=== PATIENT | male | born 1960 | race Caucasian/White ===

== ENCOUNTER 2016-07-02 10:04 | Outpatient (CLI) ==
[2016-02-16 09:29] VITALS: BMI 23.0
== END 2016-07-02 10:05 | disposition home or self-care (01) ==
LOC: WOUND 10:04
PROVIDERS: ATTEND Nurse Practitioner Family
DX: T81.89XS Other complications of procedures, not elsewhere classified, sequela (principal); L98.422 Non-pressure chronic ulcer of back with fat layer exposed; F33.9 Major depressive disorder, recurrent, unspecified
CPT/HCPCS: 99211

== ENCOUNTER 2016-07-23 10:28 | Outpatient (CLI) | payer OTHER ==
[2016-02-16 09:29] VITALS: BMI 23.0
== END 2016-07-23 10:29 | disposition home or self-care (01) ==
LOC: WOUND 10:28
PROVIDERS: ATTEND Nurse Practitioner Family
DX: T81.89XS Other complications of procedures, not elsewhere classified, sequela (principal); L98.422 Non-pressure chronic ulcer of back with fat layer exposed; F33.9 Major depressive disorder, recurrent, unspecified
CPT/HCPCS: 99211

== ENCOUNTER 2017-05-29 14:55 | Inpatient (IN) ==
[2017-05-29] MEDS ORDERED: PHENERGAN 25 MG/ML VIAL 25 MG in SODIUM CHLORIDE 50 ML IV STA ×2 (15:00→16:03)
[2017-05-29] MEDS ORDERED: SODIUM CHLORIDE 1,000 ML IV STA (15:00)
[2017-05-29] MEDS ORDERED: PHENERGAN 25 MG/ML VIAL ONE (15:15)
[2017-05-29 15:21] LABS: BASOPHILS # (AUTO) 0.1 K/uL (0-0.2); BASOPHILS % (AUTO) 0.5 % (0.0-3.0); EOSINOPHILS # (AUTO) 0.1 K/ul (0.0-0.7); EOSINOPHILS % (AUTO) 0.4 % (0.0-7.0); HEMATOCRIT 45.2 % (42.0-52.0); IMMATURE GRANULOCYTE % (AUTO) 0.4 % (0.0-5.0); LYMPHOCYTES # (AUTO) 1.6 K/uL (0.60-3.4); LYMPHOCYTES % (AUTO) 7.7 (10.0-50.0); MEAN CORPUSCULAR HEMOGLOBIN 31.4 pg (27.0-31.0); MEAN CORPUSCULAR HGB CONC 35.4 (31.8-35.4); MEAN CORPUSCULAR VOLUME 88.6 fl (80.0-94.0); MONOCYTES % (AUTO) 5.2 (0-10); NEUTROPHILS # (AUTO) 17.3 K/ul (2.0-6.9); NEUTROPHILS % (AUTO) 85.8; PLATELET COUNT 255 10^3/uL (140-440); WHITE BLOOD COUNT 20.18 K/ul (4.2-10.2)
[2017-05-29 15:46] LABS: ALANINE AMINOTRANSFERASE 20 U/L (12-78); ALBUMIN 4.1 g/dL (3.4-5.0); ALBUMIN/GLOBULIN RATIO 1.17; ALKALINE PHOSPHATASE 89 U/L (50-136); ANION GAP 19.8; ASPARTATE AMINO TRANSFERASE 15 U/L (15-37); BILIRUBIN,TOTAL 0.63 mg/dL (0.00-1.20); BLOOD UREA NITROGEN 12 mg/dL (7-18); BUN/CREATININE RATIO 13.18; CALCIUM 9.6 mg/dL (8.2-10.2); CARBON DIOXIDE 19 mmol/L (21-32); CHLORIDE 105 mmol/L (98-107); CREATINE KINASE 107 U/L; CREATININE 0.91 mg/dL (0.60-1.10); GLUCOSE 162 mg/dL (70-100); POTASSIUM 3.8 mmol/L (3.5-5.1); SODIUM 140 mmol/L (136-145); TOTAL PROTEIN 7.6 g/dL (6.4-8.2)
[2017-05-29] MEDS ORDERED: MORPHINE 4 MG/ML VIAL IVP STA ×2 (15:54→18:06)
[2017-05-29 15:57] LABS: FLU INTERNAL QC INTERNAL QC VALID; RAPID FLU A NEGATIVE (NEGATIVE); RAPID FLU B NEGATIVE (NEGATIVE)
--- NOTE | 2017-05-29 16:01 | ED.PDOC ---
General ED Provider: Dr. ROCÍO GUTIERREZ Chief Complaint: Nausea/Vomiting Stated Complaint: abdominal pain, vomiting, nausea this morning Time Seen by Physician: 15:00 (started a bout 4 hrs ago suddenly) Mode of Arrival: Walk-In Information Source: Patient Exam Limitations: No limitations Primary Care Provider: MOUNA MUELLER Nursing and Triage Documentation Reviewed and Agree: Yes GI Complaint Exam - Abdominal Pain Complaint/Exam Onset: Sudden Duration: 4hrs Symptoms Are: Still present Timing: Constant Initial Severity: Severe Current Severity: Severe Location of Pain: Diffuse Radiates To: Denies: Chest, Back, Flank, LLQ, RLQ, Inguinal Character: Reports: Cramping Aggravating: Reports: Movement, Position Alleviating: Reports: None Associated Signs and Symptoms: Reports: Cough, Decreased urine output, Decreased appetite, Nausea, Vomiting, Diarrhea, Decreased activity Related History: Reports: Similar episode AAA Risk Factors: Reports: Smoking Cardiac Risk Factors: Reports: Smoking Testicular Torsion Risk Factors: Reports: None Surgical Obstruction Risk Factors: Reports: None Related Surgical History: Reports: Cholecystectomy (hernia, ) Differential Diagnoses: Bowel Obstruction, Constipation, Diverticulitis, Gastroenteritis Quality Indicators for AMI: EKG in 10min. Quality Indicators for Cardiac Chest Pain: EKG in 10min. Quality Indicator For Non-Traumatic Chest Pain/Syncope: EKG Performed Review of Systems - Review Of Systems Constitutional: Reports: Chills, Malaise, Weakness, Loss of appetite Eyes: Reports: No symptoms Ears, Nose, Mouth, Throat: Reports: No symptoms Respiratory: Reports: Cough Cardiac: Reports: No symptoms GI: Reports: Abdominal pain, Nausea, Vomiting : Reports: No symptoms Musculoskeletal: Reports: No symptoms Skin: Reports: No symptoms Neurological: Reports: No symptoms Endocrine: Reports: No symptoms Hematologic/Lymphatic: Reports: No symptoms All Other Systems: Reviewed and Negative Past Medical History - Past Medical History Previously Healthy: Yes Endocrine: Reports: None Cardiovascular: Reports: Hypertension Respiratory: Reports: None Hematological: Reports: None Gastrointestinal: Reports: None Genitourinary: Reports: None Neuro/Psych: Reports: None Musculoskeletal: Reports: None Cancer: Reports: None - Surgical History General Surgical History: Reports: Unknown - Family History Family History: Reports: Unknown - Social History Smoking Status: Former smoker Hx Substance Use: No Alcohol Screening: None Physical Exam - Physical Exam Appearance: Ill-appearing Ill-appearing: Moderate Pain Distress: Moderate Eyes: MICHAELLE, EOMI, Conjunctiva clear ENT: Ears normal, Nose normal, Oropharynx normal Respiratory: Airway patent, Breath sounds clear, Breath sounds equal, Respirations nonlabored Cardiovascular: RRR, Pulses normal, No rub, No murmur GI/: Tender Musculoskeletal: Normal strength, ROM intact, No edema, No calf tenderness Skin: Warm, Dry, Normal color Neurological: Sensation intact, Motor intact, Reflexes intact, Cranial nerves intact, Alert, Oriented Psychiatric: Affect appropriate, Mood appropriate Critical Care Note - Critical Care Note Total Time (mins): 0 Course - Course Hematology/Chemistry: 05/29/17 15:18 05/29/17 15:18 Orders, Labs, Meds: Lab Review 05/29/17 05/29/17 05/29/17 15:18 15:18 15:20 WBC 20.18 H RBC 5.10 Hgb 16.0 Hct 45.2 MCV 88.6 MCH 31.4 H MCHC 35.4 RDW Coeff of Dee 13.0 Plt Count 255 Immature Gran % (Auto) 0.4 Neut % (Auto) 85.8 Lymph % (Auto) 7.7 L Tift % (Auto) 5.2 Eos % (Auto) 0.4 Baso % (Auto) 0.5 Immature Gran # (Auto) 0.1 Neut # 17.3 H Lymph # 1.6 Tift # 1.0 Eos # 0.1 Baso # 0.1 Sodium 140 Potassium 3.8 Chloride 105 Carbon Dioxide 19 L Anion Gap 19.8 BUN 12 Creatinine 0.91 Estimated GFR (MDRD) 86.00 BUN/Creatinine Ratio 13.18 Glucose 162 H Calcium 9.6 Total Bilirubin 0.63 AST 15 ALT 20 Alkaline Phosphatase 89 Total Creatine Kinase 107 Troponin I < 0.0100 Total Protein 7.6 Albumin 4.1 Globulin 3.5 Albumin/Globulin Ratio 1.17 Influenza A (Rapid) Negative Influenza B (Rapid) Negative Orders Category Date Time Status EKG-(ED ONLY) Stat CARDIO 05/29/17 15:02 Completed BLOOD CULTURE Stat LAB 05/29/17 15:54 Ordered CBC W/ AUTO DIFF Stat LAB 05/29/17 15:18 Completed COMPREHENSIVE METABOLIC PANEL Stat LAB 05/29/17 15:18 Completed CREATINE KINASE Stat LAB 05/29/17 15:18 Completed LACTIC ACID Stat LAB 05/29/17 15:54 Ordered LACTIC ACID Timed LAB 05/29/17 15:54 Ordered MOLECULAR GROUP A STREP Stat LAB 05/29/17 15:20 Results RAPID FLU A/B Stat LAB 05/29/17 15:20 Completed STREP SCREEN Stat LAB 05/29/17 15:20 Results TROPONIN I Stat LAB 05/29/17 15:18 Completed URINALYSIS C & S IF INDICATED Stat LAB 05/29/17 14:58 Uncollected Morphine Sulfate [Morphine 4 mg/ml Vial] MEDS 05/29/17 15:54 Discontinued 4 mg IVP ONCE STA Promethazine HCl [Phenergan 25 mg/ml Vial] MEDS 05/29/17 15:15 Discontinued 25 mg .ROUTE .STK-MED ONE Promethazine HCl [Phenergan 25 mg/ml Vial] 25 mg MEDS 05/29/17 15:00 Discontinued 0.9 % Sodium Chloride [Sodium Chloride] 50 ml IV ONCE Sodium Chloride 0.9% [Sodium Chloride] 1,000 ml MEDS 05/29/17 15:[address] ABDOMEN/PELVIS WO CONTRAST Stat RADS 05/29/17 14:58 Ordered Medications Discontinued Medications Generic Name Dose Route Start Last Admin Trade Name Freq PRN Reason Stop Dose Admin Promethazine HCl 25 mg/ Sodium 51 mls @ 75 mls/hr 05/29/17 15:00 05/29/17 15: 23 Chloride IV 05/29/17 15:40 75 mls/hr ONCE STA Administration Sodium Chloride 1,000 mls @ 1,000 mls/hr 05/29/17 15:00 05/29/17 15:25 Sodium Chloride IV 05/29/17 15:59 1,000 mls/hr BOLUS STA Administration Morphine Sulfate 4 mg 05/29/17 15:54 Morphine 4 Mg/Ml Vial IVP 05/29/17 15:55 ONCE STA Vital Signs: Temp Pulse Resp BP Pulse Ox 05/29/17 14:56 97.7 F 89 16 157/70 H 98 Departure - Departure Time of Disposition: 18:07 Disposition: ADMITTED INPATIENT Discharge Problem: Nausea Abdominal pain Qualifiers: Abdominal location: generalized Qualified Code(s): R10.84 - Generalized abdominal pain Instructions: Abdominal Pain (ED) Condition: Good Pt referred to PMD for follow-up: Yes Additional Instructions: Please call your Family Physician as soon as possible to schedule a follow-up appointment. Allergies/Adverse Reactions: Allergies iodine Adverse Reaction (Verified 05/29/17 15:03) methylparaben Adverse Reaction (Verified 05/29/17 15:03) povidone-iodine [From Betadine] Adverse Reaction (Verified 05/29/17 15:03) Home Medications: Ambulatory Orders Citalopram Hydrobromide [Celexa] 10 mg PO BEDTIME #30 tab-cap 05/19/16 Clonazepam [Klonopin] 1 mg PO BID #60 tab-cap 05/19/16 Ondansetron HCl [Zofran] 4 mg PO PRN PRN tab-cap 05/19/16 Pantoprazole Sodium [Protonix] 40 mg PO DAILY #30 tab-cap 05/19/16 Ranitidine HCl [Zantac] 150 mg PO BID #60 tab-cap 16
--- NOTE | 2017-05-29 16:11 | CT ---
EXAM: CT of the abdomen pelvis without contrast History: Abdominal pain and vomiting. Comparison: CT abdomen pelvis 02/16/2016 Technique: Multiplanar CT images through the abdomen pelvis were obtained without the administration of IV contrast Findings: Lung bases are free of consolidation. Moderate to severe degenerative disc disease within the lower lumbar spine. Status post cholecystectomy. No focal liver or splenic lesions. Adrenal g lands are unremarkable. Benign bilateral adrenal adenomas again identified. No peripancreatic infla mmation. A few punctate 2 mm left renal calculi. No hydronephrosis. The appendix is not dilated or inflamed. Prominent gastric folds. Nondilated fluid filled loops of small bowel and there is proxim al small bowel wall thickening. There is mild diffuse colonic wall thickening. Colonic diverticulos is. There is hyperemia adjacent to the colon. Surgical clips again seen within the right inguinal re gion No bladder wall thickening. Prostate is not enlarged. There is a left inguinal hernia which contain s fluid and soft tissue and may be a high left testicle. Impression: 1. Probable mild gastroenterocolitis. No bowel obstruction. 2. Left inguinal hernia containing fluid and soft tissue and may be related to a high left testicle. Correlate with area of pain and consider further evaluation with scrotal ultrasound. 3. Nonobstructing left nephrolithiasis.
[2017-05-29] MEDS ORDERED: PHENERGAN 25 MG/ML VIAL 25 MG in SODIUM CHLORIDE 50 ML IV PRN (18:05)
[2017-05-29] MEDS: SODIUM CHLORIDE 1,000 ML IV SCH (18:06)
[2017-05-29] MEDS ORDERED: MORPHINE 2 MG/ML SYRINGE IVP PRN (18:06)
[2017-05-29] MEDS ORDERED: ROCEPHIN ONE (18:08)
[2017-05-29] MEDS: ROCEPHIN 1 GM in SODIUM CHLORIDE 50 ML IV SCH (18:11)
--- NOTE | 2017-05-29 18:32 | CT ---
EXAM: CT chest without intravenous contrast 05/29/2017. Sagittal and coronal reformatted images obt ained HISTORY: Cough. Elevated white blood cell count COMPARISON: 03/05/2015 FINDINGS: The heart size appears within normal limits. No pericardial effusion. There is no pulmonary consolidation. No pleural effusion or pneumothorax. No evidence of pulmonary mass. No acute osseous abnormality. Mild right lower lobe atelectasis. IMPRESSION: Right lower lobe atelectasis. No acute cardiopulmonary process.
[2017-05-29] MEDS ORDERED: FLAGYL 500 MG/100 ML 100 ML IV ONE ×2 (19:55→23:58)
[2017-05-29] MEDS: FLAGYL 500 MG/100 ML 500 MG in PREMIX 100 ML NS 1 BAG IV SCH (19:58)
[2017-05-29 20:24] VITALS: BMI 25.2
[2017-05-29] MEDS ORDERED: PROTONIX IV IVP STA (21:22)
[2017-05-29] MEDS ORDERED: NON-FORMULARY MEDICATION (Citalopram Hydrobromide [Celexa] 10 MG) PO SCH ×22 (21:30)
[2017-05-29] MEDS ORDERED: NON-FORMULARY MEDICATION (Clonazepam [Klonopin] 1 MG) PO SCH ×22 (21:30)
[2017-05-29] MEDS ORDERED: CELEXA ONE (21:36)
[2017-05-29] MEDS ORDERED: KLONOPIN ONE (21:36)
[2017-05-29] MEDS ORDERED: CITALOPRAM HYDROBROMIDE 30 MG PO SCH ×2 (21:52→22:00)
[2017-05-29 23:26] LABS: BILIRUBIN,URINE Negative (NEGATIVE); KETONES,URINE 2+ (NEGATIVE); LEUKOCYTE ESTERASE ,URINE Negative (NEGATIVE); NITRITE,URINE Negative (NEGATIVE); PROTEIN,URINE Negative (NEGATIVE); URINE, BLOOD 1+ (NEGATIVE)
[2017-05-29 23:28] LABS: ADD URINE MICROSCOPIC YES
[2017-05-30] MEDS: FLAGYL 500 MG/100 ML 500 MG in PREMIX 100 ML NS 1 BAG IV SCH ×5 (00:04→18:49)
[2017-05-30] MEDS: SODIUM CHLORIDE 1,000 ML IV SCH ×2 (03:10→17:31)
[2017-05-30] MEDS ORDERED: FLAGYL 500 MG/100 ML 100 ML IV ONE (04:13)
[2017-05-30 06:17] LABS: BASOPHILS % (AUTO) 0.2 % (0.0-3.0); HEMATOCRIT 41.8 % (42.0-52.0); HEMOGLOBIN 14.8 g/dl (14.0-18.0); IMMATURE GRANULOCYTE % (AUTO) 0.3 % (0.0-5.0); LYMPHOCYTES # (AUTO) 1.1 K/uL (0.60-3.4); LYMPHOCYTES % (AUTO) 8.7 (10.0-50.0); MEAN CORPUSCULAR HEMOGLOBIN 31.8 pg (27.0-31.0); MEAN CORPUSCULAR HGB CONC 35.4 (31.8-35.4); MEAN CORPUSCULAR VOLUME 89.9 fl (80.0-94.0); MONOCYTES % (AUTO) 7.7 (0-10); NEUTROPHILS # (AUTO) 10.2 K/ul (2.0-6.9); NEUTROPHILS % (AUTO) 83.1; PLATELET COUNT 234 10^3/uL (140-440); RED BLOOD COUNT 4.65 10^6/ul (4.70-6.10); WHITE BLOOD COUNT 12.31 K/ul (4.2-10.2)
[2017-05-30] MEDS ORDERED: PROTONIX IV IVP ONE (06:30)
[2017-05-30] MEDS ORDERED: PHENERGAN 25 MG/ML VIAL ONE (06:32)
[2017-05-30 06:47] LABS: ANION GAP 15.5; BILIRUBIN,TOTAL 0.51 mg/dL (0.00-1.20); CALCIUM 8.6 mg/dL (8.2-10.2); CREATININE 0.8 mg/dL (0.60-1.10); POTASSIUM 3.5 mmol/L (3.5-5.1)
[2017-05-30 06:48] LABS: ALBUMIN 3.2 g/dL (3.4-5.0); ALBUMIN/GLOBULIN RATIO 0.94; TOTAL PROTEIN 6.6 g/dL (6.4-8.2)
[2017-05-30] MEDS: KLONOPIN PO SCH ×2 (10:37→21:35)
[2017-05-30] MEDS: ROCEPHIN 1 GM in SODIUM CHLORIDE 50 ML IV SCH (12:50)
[2017-05-30] MEDS: ZANTAC PO SCH (17:31)
[2017-05-30] MEDS ORDERED: CELEXA PO SCH (21:00)
[2017-05-31] MEDS: FLAGYL 500 MG/100 ML 500 MG in PREMIX 100 ML NS 1 BAG IV SCH ×5 (00:39→23:18)
[2017-05-31 05:16] LABS: BASOPHILS # (AUTO) 0.1 K/uL (0-0.2); BASOPHILS % (AUTO) 0.7 % (0.0-3.0); EOSINOPHILS # (AUTO) 0.1 K/ul (0.0-0.7); EOSINOPHILS % (AUTO) 0.8 % (0.0-7.0); HEMATOCRIT 40.4 % (42.0-52.0); HEMOGLOBIN 13.8 g/dl (14.0-18.0); IMMATURE GRANULOCYTE % (AUTO) 0.4 % (0.0-5.0); LYMPHOCYTES # (AUTO) 2.6 K/uL (0.60-3.4); LYMPHOCYTES % (AUTO) 27.1 (10.0-50.0); MEAN CORPUSCULAR HEMOGLOBIN 31.1 pg (27.0-31.0); MEAN CORPUSCULAR HGB CONC 34.2 (31.8-35.4); MONOCYTES # (AUTO) 0.9 K/uL (0.4-2.0); MONOCYTES % (AUTO) 9.7 (0-10); NEUTROPHILS # (AUTO) 5.8 K/ul (2.0-6.9); NEUTROPHILS % (AUTO) 61.3; PLATELET COUNT 215 10^3/uL (140-440); RED BLOOD COUNT 4.44 10^6/ul (4.70-6.10); WHITE BLOOD COUNT 9.49 K/ul (4.2-10.2)
[2017-05-31 05:54] LABS: ALBUMIN/GLOBULIN RATIO 1.07; ANION GAP 12.3; BILIRUBIN,TOTAL 0.62 mg/dL (0.00-1.20); BUN/CREATININE RATIO 19.48; CREATININE 0.77 mg/dL (0.60-1.10); POTASSIUM 3.3 mmol/L (3.5-5.1); TOTAL PROTEIN 5.8 g/dL (6.4-8.2)
[2017-05-31] MEDS: ZANTAC PO SCH ×2 (06:09→18:14)
[2017-05-31] MEDS: KLONOPIN PO SCH ×2 (10:16→23:15)
[2017-05-31] MEDS: ROCEPHIN 1 GM in SODIUM CHLORIDE 50 ML IV SCH (10:16)
[2017-05-31] MEDS: SODIUM CHLORIDE 1,000 ML IV ONE ×2 (11:27→11:30)
[2017-05-31] MEDS: CELEXA PO SCH (23:14)
[2017-06-01] MEDS: FLAGYL 500 MG/100 ML 500 MG in PREMIX 100 ML NS 1 BAG IV SCH ×3 (07:36→17:13)
[2017-06-01] MEDS: ZANTAC PO SCH ×2 (07:37→17:12)
[2017-06-01] MEDS: PROTONIX PO SCH (08:48)
[2017-06-01 08:55] LABS: BASOPHILS # (AUTO) 0.1 K/uL (0-0.2); EOSINOPHILS # (AUTO) 0.2 K/ul (0.0-0.7); EOSINOPHILS % (AUTO) 2.5 % (0.0-7.0); HEMATOCRIT 43.1 % (42.0-52.0); HEMOGLOBIN 15.4 g/dl (14.0-18.0); IMMATURE GRANULOCYTE % (AUTO) 0.3 % (0.0-5.0); LYMPHOCYTES # (AUTO) 1.8 K/uL (0.60-3.4); LYMPHOCYTES % (AUTO) 19.6 (10.0-50.0); MEAN CORPUSCULAR HEMOGLOBIN 31.9 pg (27.0-31.0); MEAN CORPUSCULAR HGB CONC 35.7 (31.8-35.4); MEAN CORPUSCULAR VOLUME 89.2 fl (80.0-94.0); MONOCYTES # (AUTO) 0.8 K/uL (0.4-2.0); MONOCYTES % (AUTO) 8.4 (0-10); NEUTROPHILS # (AUTO) 6.1 K/ul (2.0-6.9); NEUTROPHILS % (AUTO) 68.2; PLATELET COUNT 218 10^3/uL (140-440); RED BLOOD COUNT 4.83 10^6/ul (4.70-6.10); WHITE BLOOD COUNT 8.95 K/ul (4.2-10.2)
[2017-06-01] MEDS: ROCEPHIN 1 GM in SODIUM CHLORIDE 50 ML IV SCH (08:55)
[2017-06-01] MEDS: KLONOPIN PO SCH ×2 (08:56→21:18)
[2017-06-01] MEDS: K-DUR PO SCH ×2 (08:58→21:18)
[2017-06-01 09:15] LABS: ALBUMIN 3.3 g/dL (3.4-5.0); ALBUMIN/GLOBULIN RATIO 1.14; ANION GAP 12.3; BILIRUBIN,TOTAL 0.69 mg/dL (0.00-1.20); BUN/CREATININE RATIO 17.94; CALCIUM 8.5 mg/dL (8.2-10.2); CREATININE 0.78 mg/dL (0.60-1.10); POTASSIUM 3.3 mmol/L (3.5-5.1); TOTAL PROTEIN 6.2 g/dL (6.4-8.2)
--- NOTE | 2017-06-01 09:47 | PCM.PROG ---
Attending Provider: ATTENDING PROVIDER: Dr. MOUNA MUELLER This patient is seen with Jocelyn Salinas, Nurse Practitioner. DATE OF SERVICE: 06/01/17 SUBJECTIVE: This 56 year old WHITE/ M was hospitalized 05/29/17. The patient is sitting in bed, is alert. He states he is still having diarrhea. No vomiting since Thursday night. He is sleeping well. He has been able to eat some. Potassium low yesterday, will recheck CBC and CMP today. REVIEW OF SYSTEMS: CONSTITUTIONAL: Weakness. No night sweats. No fever or chills. HEENT: Eyes: No visual changes. No eye pain. No eye discharge. ENT: No runny nose. No epistaxis. No sinus pain. No odynophagia. No congestion. RESPIRATORY: No cough, no congestion. No hemoptysis. No shortness of breath. CARDIOVASCULAR: No angina symptoms. No CHF symptoms. No atypical chest pain for CAD. No palpitations. No orthopnea.. GASTROINTESTINAL: No abdominal pain. No nausea or vomiting. Positive for diarrhea. No hematemesis. No hematochezia. GENITOURINARY: No urgency. No frequency. No dysuria. No hematuria. No obstructive symptoms. No discharge. No pain. No significant abnormal bleeding. MUSCULOSKELETAL: No musculoskeletal pain; no joint swelling. NEUROLOGICAL: Awake, alert, oriented to time, place and person. No headache. No neck pain. No syncope. No seizures. No dizziness. PSYCHIATRIC: Not anxious. No depression. No suicidal thoughts. No homicidal thoughts. SKIN: No rash. No lesions. No wounds. ENDOCRINE: No unexplained weight loss. No weight gain. HEMATOLOGIC/LYMPHATIC: No anemia. No purpura. No petechiae. No prolonged or excessive bleeding. No palpable lymph nodes. PHYSICAL EXAMINATION: GENERAL: The patient is awake, alert and oriented, sitting in bed in no distress. VITAL SIGNS: Temperature 97.6 F, Pulse 68, Respiratory Rate 20, BP 123/88, Pulse Ox 98% HEENT: Head normocephalic, atraumatic. Eyes: Extraocular muscles are intact. Pupils are equal, round and reactive to light and accommodation. Ears: No lesions. Nose appeared normal. Throat: No exudate or erythema. NECK: Supple. No JVD, no carotid bruit. No lymphadenopathy or thyromegaly. LUNGS: Diminished breath sounds. Clear to auscultation. Percussion note normal. Chest symmetrical. HEART: S1, S2, no S3. No murmurs. No cyanosis or clubbing. No ascites. Pulses: Dorsalis pedis and posterior tibial pulses +1 to +2 both sides. ABDOMEN: Soft. Non-tender. Bowel sounds active. No CVA tenderness. No mass felt. EXTREMITIES: No edema. Full range of motion of all extremities, equal. NEUROLOGIC: No focal deficit. Cranial nerves II through XII are grossly intact. No headache, no double vision or headache. SKIN: Not dry. Intact. Turgor-normal. LYMPHATIC: No palpable lymph nodes/no lymphedema. MUSCULOSKELETAL: Normal joints with no swelling. Muscle tone is normal. LAB REVIEW: 05/31/17 04:30 05/31/17 04:30 ASSESSMENT: 1. ACUTE GASTROENTERITIS 2. GERD PLAN: 1. CBC and CMP daily 2. Protonix 40 mg daily 3. 40 mEq b.i.d potassium Plan and coordination of the patient's care discussed in the presence of Caving Guide and nurse. CONDITION: Stable SCRIBED BY: Rich GARZAist scribed while in presence of service performed by Dr. Mueller/Jocelyn Salinas APRN on 06/01/17 ([id number])
[2017-06-01] MEDS: SODIUM CHLORIDE 1,000 ML IV SCH (12:43)
[2017-06-01] MEDS: CELEXA PO SCH (21:18)
[2017-06-02] MEDS: FLAGYL 500 MG/100 ML 500 MG in PREMIX 100 ML NS 1 BAG IV SCH ×3 (01:56→11:47)
[2017-06-02 05:02] LABS: BASOPHILS # (AUTO) 0.1 K/uL (0-0.2); BASOPHILS % (AUTO) 0.9 % (0.0-3.0); EOSINOPHILS # (AUTO) 0.5 K/ul (0.0-0.7); EOSINOPHILS % (AUTO) 5.4 % (0.0-7.0); HEMATOCRIT 44.6 % (42.0-52.0); HEMOGLOBIN 15.7 g/dl (14.0-18.0); IMMATURE GRANULOCYTE % (AUTO) 0.3 % (0.0-5.0); LYMPHOCYTES # (AUTO) 1.5 K/uL (0.60-3.4); LYMPHOCYTES % (AUTO) 16.8 (10.0-50.0); MEAN CORPUSCULAR HEMOGLOBIN 31.4 pg (27.0-31.0); MEAN CORPUSCULAR HGB CONC 35.2 (31.8-35.4); MEAN CORPUSCULAR VOLUME 89.2 fl (80.0-94.0); MONOCYTES # (AUTO) 0.9 K/uL (0.4-2.0); MONOCYTES % (AUTO) 10.6 (0-10); NEUTROPHILS # (AUTO) 5.8 K/ul (2.0-6.9); PLATELET COUNT 224 10^3/uL (140-440); WHITE BLOOD COUNT 8.76 K/ul (4.2-10.2)
[2017-06-02 05:24] LABS: ALBUMIN 3.2 g/dL (3.4-5.0); ALBUMIN/GLOBULIN RATIO 1.1; ANION GAP 10.7; BILIRUBIN,TOTAL 0.64 mg/dL (0.00-1.20); BUN/CREATININE RATIO 16.45; CALCIUM 8.6 mg/dL (8.2-10.2); CREATININE 0.79 mg/dL (0.60-1.10); POTASSIUM 3.7 mmol/L (3.5-5.1); TOTAL PROTEIN 6.1 g/dL (6.4-8.2)
[2017-06-02] MEDS: PROTONIX PO SCH (05:58)
[2017-06-02] MEDS: ZANTAC PO SCH (05:59)
[2017-06-02] MEDS: ROCEPHIN 1 GM in SODIUM CHLORIDE 50 ML IV SCH (08:49)
[2017-06-02] MEDS: K-DUR PO SCH (08:50)
[2017-06-02] MEDS: KLONOPIN PO SCH (08:54)
--- NOTE | 2017-06-02 09:22 | PN ---
DATE OF SERVICE: 05/29/17 SUBJECTIVE: The patient was hospitalized through the emergency room with acute gastroenteritis. All his labs were practically normal except for continuous nausea and some vomiting with diarrhea. The patient's only abnormality on the lab was WBC was 20,000. Stool for C-Diff was ordered. The patient is going to be on IV fluids, Phenergan for nausea. The patient will be put on Protonix IV. Continue the rest of the medications including Celexa. The patient's other cardiovascular and HEALTH ANALYTICS CONSULTANT status is normal. CT scan of the chest was negative. CT scan of the abdominal and pelvis showed gastroenteritis CONDITION: Stable TIME SPENT: More than 30 minutes. Plan and coordination of the patient's care discussed in the presence of nurse. ADELA
[2017-06-02 09:47] VITALS: BP 139/87; TEMP 98.3
--- NOTE | 2017-06-02 09:56 | HP ---
DATE OF SERVICE: 05/29/17 REASON FOR HOSPITALIZATION: Acute gastroenteritis HISTORY OF PRESENT ILLNESS: 56 year old white male came to the emergency room with severe diarrhea and vomiting of nearly 24-48 hours duration. The patient in the emergency room was given Phenergan and IV fluids. The patient's WBC was 20,000. The patient doesn' t remember anything that could have started this. PAST MEDICAL HISTORY: Depression Anxiety syndrome Severe reflux disease REVIEW OF SYSTEMS: CONSTITUTIONAL: No night sweats. Weakness and fatigue. No fever or chills. HEENT: Eyes: No visual changes. No eye pain. No eye discharge. ENT: No runny nose. No epistaxis. No sinus pain. No sore throat. No odynophagia. No ear pain. No congestion. RESPIRATORY: No cough, no congestion. No hemoptysis. No shortness of breath. CARDIOVASCULAR: No angina symptoms. No CHF symptoms. No atypical chest pain for CAD. No palpitations. No orthopnea. GASTROINTESTINAL: No abdominal pain. Nausea and vomiting. Diarrhea stool. No hematemesis. No hematochezia. GENITOURINARY: No urgency. No frequency. No dysuria. No hematuria. No obstructive symptoms. No discharge. No pain. No significant abnormal bleeding. MUSCULOSKELETAL: No musculoskeletal pain. No joint swelling. No arthritis. NEUROLOGICAL: No headache. No neck pain. No syncope. No seizures. No dizziness. Lightheaded. PSYCHIATRIC: Not anxious. No depression. No suicidal thoughts. No homicidal thoughts. SKIN: No rash. No lesions. No wounds. ENDOCRINE: No unexplained weight loss. No weight gain. HEMATOLOGIC/LYMPHATIC: No anemia. No purpura. No petechiae. No prolonged or excessive bleeding. No palpable lymph nodes. PERSONAL/FAMILY/SOCIAL HISTORY: The patient is and nonsmoker, no alcohol abuse. He does all activity of daily living. MEDICATIONS: Celexa Klonopin Zofran Protonix Zantac ALLERGIES: Methylparaben Betadine PHYSICAL EXAMINATION: GENERAL: The patient is oriented to time, place and person VITAL SIGNS: Temperature 98.1, pulse 90, respiratory rate 16, blood pressure 138/80 and pulse ox 94%. HEENT: Head normocephalic, atraumatic. Eyes: Extraocular muscles are intact. Pupils are equal, round and reactive to light and accommodation. Ears: No lesions. Nose appeared normal. Throat: No exudate or erythema. NECK: Supple. No JVP, no carotid bruit. No lymphadenopathy or thyromegaly. LUNGS: Decreased breath sounds but clear to auscultation. Percussion note normal. Chest symmetrical. HEART: S1, S2, no S3. No murmurs. No cyanosis or clubbing. No ascites. Pulses: Dorsalis pedis and posterior tibial pulses +1 to +2 both sides. ABDOMEN: Soft. Nontender. Bowel sounds active. No CVA tenderness. No mass felt. EXTREMITIES: No edema. Full range of motion of all extremities, equal. NEUROLOGIC: No focal deficit. Cranial nerves II through XII are grossly intact. No headache, no double vision or headache. SKIN: Not dry. Intact. Turgor -Poor LYMPHATIC: No palpable lymph nodes/no lymphedema. MUSCULOSKELETAL: Normal joints with no swelling. Muscle tone is normal. LABS: Hgb 14.8, hct 41, WBC 20,000 with shift to the left ASSESSMENT: 1. Acute gastroenteritis with dehydration 2. Reflux disease 3. Depression PLAN: 1. IV fluid 2. IV Phenergan 3. Lomotil PRN 4. The patient is to send stool for C-Diff 5. Flagyl IV CONDITION: Stable TIME SPENT: More than 70 minutes. MTDD
--- NOTE | 2017-06-02 10:01 | PN ---
DATE OF SERVICE: 05/30/17 SUBJECTIVE: 56 year old white male hospitalized with acute gastroenteritis. The patient's condition has improved a lot. is present in the room. The patient is sitting up and eating. He says that he has mild nausea off and on but the vomited has subsided and diarrhea part also has subsided. REVIEW OF SYSTEMS: CONSTITUTIONAL: No night sweats. No fatigue, malaise, lethargy. No fever or chills. Weakness HEENT: Eyes: No visual changes. No eye pain. No eye discharge. ENT: No runny nose. No epistaxis. No sinus pain. No sore throat. No odynophagia. No congestion. RESPIRATORY: No cough, no congestion. No hemoptysis. No shortness of breath. CARDIOVASCULAR: No angina symptoms. No CHF symptoms. No atypical chest pain for CAD. No palpitations. No orthopnea. GASTROINTESTINAL: No abdominal pain. Mild nausea. No diarrhea or constipation. No hematemesis. No hematochezia. GENITOURINARY: No urgency. No frequency. No dysuria. No hematuria. No obstructive symptoms. No discharge. No pain. No significant abnormal bleeding. MUSCULOSKELETAL: No musculoskeletal pain; no joint swelling. NEUROLOGICAL: No headache. No neck pain. No syncope. No seizures. No dizziness. PSYCHIATRIC: Not anxious. No depression. No suicidal thoughts. No homicidal thoughts. SKIN: No rash. No lesions. No wounds. ENDOCRINE: No unexplained weight loss. No weight gain. HEMATOLOGIC/LYMPHATIC: No anemia. No purpura. No petechiae. No prolonged or excessive bleeding. No palpable lymph nodes. PHYSICAL EXAMINATION: GENERAL: The patient is oriented to time, place and person VITAL SIGNS: Temperature 98.1, pulse 96, respiratory rate 16, blood pressure 140/90 and pulse ox 94%. HEENT: Head normocephalic, atraumatic. Eyes: Extraocular muscles are intact. Pupils are equal, round and reactive to light and accommodation. Ears: No lesions. Nose appeared normal. Throat: No exudate or erythema. NECK: Supple. No JVD, no carotid bruit. No lymphadenopathy or thyromegaly. LUNGS: Decreased breath sounds but clear to auscultation. Percussion note normal. Chest symmetrical. HEART: S1, S2, no S3. No murmurs. No cyanosis or clubbing. No ascites. Pulses: Dorsalis pedis and posterior tibial pulses +1 to +2 both sides. ABDOMEN: Soft. Nontender. Bowel sounds active. No CVA tenderness. No mass felt. EXTREMITIES: No edema. Full range of motion of all extremities, equal. NEUROLOGIC: No focal deficit. Cranial nerves II through XII are grossly intact. No headache, no double vision or headache. SKIN: Not dry. Intact. Turgor - a lot better. LYMPHATIC: No palpable lymph nodes/no lymphedema. MUSCULOSKELETAL: Normal joints with no swelling. Muscle tone is normal. LABS: Hgb 14, hct 41, WBC 12,000 it was 20,000 before, creatinine 0.9, BUN 12 ASSESSMENT: 1. Acute gastroenteritis seems to be resolving with good skin turgor, no fluid overload PLAN: 1. Continue IV Protonix and Flagyl 2. Awaiting C-Diff, I don't think that patient has C-Diff , the patient was afebrile throughout and the patient had simple gastroenteritis could be viral CONDITION: Stable TIME SPENT: More than 30 minutes. Plan and coordination of the patient's care discussed in the presence of nurse. ADELA
--- NOTE | 2017-06-02 11:11 | PCM.PROG ---
Attending Provider: ATTENDING PROVIDER: Dr. MOUNA MUELLER This patient is seen with Jocelyn Salinas, Nurse Practitioner. DATE OF SERVICE: 06/02/17 SUBJECTIVE: This 56 year old WHITE/ M was hospitalized 05/29/17. The patient is lying in bed. The patient states he is wanting to go home. He had four looser stools yesterday but is improving. He states he never has completely formed stools. No nausea. No vomiting. No fever. REVIEW OF SYSTEMS: CONSTITUTIONAL: No night sweats. No fatigue, malaise, lethargy. No fever or chills. HEENT: Eyes: No visual changes. No eye pain. No eye discharge. ENT: No runny nose. No epistaxis. No sinus pain. No odynophagia. No congestion. RESPIRATORY: No cough, no congestion. No hemoptysis. No shortness of breath. CARDIOVASCULAR: No angina symptoms. No CHF symptoms. No atypical chest pain for CAD. No palpitations. No orthopnea.. GASTROINTESTINAL: Diarrhea improving. No abdominal pain. No nausea or vomiting. No hematemesis. No hematochezia. GENITOURINARY: No urgency. No frequency. No dysuria. No hematuria. No obstructive symptoms. No discharge. No pain. No significant abnormal bleeding. MUSCULOSKELETAL: No musculoskeletal pain; no joint swelling. NEUROLOGICAL: Awake, alert, oriented to time, place and person. No headache. No neck pain. No syncope. No seizures. No dizziness. PSYCHIATRIC: Not anxious. No depression. No suicidal thoughts. No homicidal thoughts. SKIN: No rash. No lesions. No wounds. ENDOCRINE: No unexplained weight loss. No weight gain. HEMATOLOGIC/LYMPHATIC: No anemia. No purpura. No petechiae. No prolonged or excessive bleeding. No palpable lymph nodes. PHYSICAL EXAMINATION: GENERAL: The patient is awake, alert and oriented, lying in bed in no distress. VITAL SIGNS: Temperature 98.2 F, Pulse 63, Respiratory Rate 18, BP 123/85, Pulse Ox 97% HEENT: Head normocephalic, atraumatic. Eyes: Extraocular muscles are intact. Pupils are equal, round and reactive to light and accommodation. Ears: No lesions. Nose appeared normal. Throat: No exudate or erythema. NECK: Supple. No JVD, no carotid bruit. No lymphadenopathy or thyromegaly. LUNGS: Diminished breath sounds bilaterally. Clear to auscultation. Percussion note normal. Chest symmetrical. HEART: S1, S2, no S3. No murmurs. No cyanosis or clubbing. No ascites. Pulses: Dorsalis pedis and posterior tibial pulses +1 to +2 both sides. ABDOMEN: Soft. Non-tender. Bowel sounds active. No CVA tenderness. No mass felt. EXTREMITIES: No edema. Full range of motion of all extremities, equal. NEUROLOGIC: No focal deficit. Cranial nerves II through XII are grossly intact. No headache, no double vision or headache. SKIN: Not dry. Intact. Turgor-normal. LYMPHATIC: No palpable lymph nodes/no lymphedema. MUSCULOSKELETAL: Normal joints with no swelling. Muscle tone is normal. LAB REVIEW: 06/02/17 04:30 06/02/17 04:30 06/02/17 04:30: Sodium 138, Potassium 3.7, Chloride 107, Carbon Dioxide 24, Anion Gap 10.7, BUN 13, Creatinine 0.79, Estimated GFR (MDRD) 101.00, BUN/ Creatinine Ratio 16.45, Glucose 84, Calcium 8.6, Total Bilirubin 0.64, AST 15, ALT 11 L, Alkaline Phosphatase 74, Total Protein 6.1 L, Albumin 3.2 L, Globulin 2.9, Albumin/Globulin Ratio 1.10 06/02/17 04:30: WBC 8.76, RBC 5.00, Hgb 15.7, Hct 44.6, MCV 89.2, MCH 31.4 H, MCHC 35.2, RDW Coeff of Dee 12.6, Plt Count 224, Immature Gran % (Auto) 0.3, Neut % (Auto) 66.0, Lymph % (Auto) 16.8, [place] % (Auto) 10.6 H, Eos % (Auto) 5.4 , Baso % (Auto) 0.9, Immature Gran # (Auto) 0.0, Neut # 5.8, Lymph # 1.5, [place] # 0.9, Eos # 0.5, Baso # 0.1 06/01/17 08:45: Sodium 138, Potassium 3.3 L, Chloride 105, Carbon Dioxide 24, Anion Gap 12.3, BUN 14, Creatinine 0.78, Estimated GFR (MDRD) 103.00, BUN/ Creatinine Ratio 17.94, Glucose 100, Calcium 8.5, Total Bilirubin 0.69, AST 13 L , ALT 10 L, Alkaline Phosphatase 74, Total Protein 6.2 L, Albumin 3.3 L, Globulin 2.9, Albumin/Globulin Ratio 1.14 06/01/17 08:45: WBC 8.95, RBC 4.83, Hgb 15.4, Hct 43.1, MCV 89.2, MCH 31.9 H, MCHC 35.7 H, RDW Coeff of Dee 12.8, Plt Count 218, Immature Gran % (Auto) 0.3, Neut % (Auto) 68.2, Lymph % (Auto) 19.6, [place] % (Auto) 8.4, Eos % (Auto) 2.5, Baso % (Auto) 1.0, Immature Gran # (Auto) 0.0, Neut # 6.1, Lymph # 1.8, [place] # 0.8, Eos # 0.2, Baso # 0.1 ASSESSMENT: 1. ACUTE GASTROENTERITIS 2. GERD 3. HYPOKALEMIA RESOLVED PLAN: 1. D/C home today 2. Followup with Dr. Mueller/Jocelyn Salinas APRN on Thursday 3. Flagyl 500 t.i.d times five days 4. Zofran 4 mg p.r.n. #30 5. Continue Protonix 6. Continue Zantac 7. Questran 4 gm daily times one week Plan and coordination of the patient's care discussed in the presence of Pharmacy Informatics Specialist and nurse. CONDITION: Stable SCRIBED BY: SANDOVAL MANDEL, Ammonia Box Tender scribed while in presence of service performed by Dr. Mueller/Jocelyn Salinas APRN on 06/02/17 (1929)
--- NOTE | 2017-06-02 13:05 | CM.DICTOOL ---
ADMISSION: 05/29/17 18:14 DISCHARGE: 06/02/17 DATE OF SERVICE: 06/02/17 FINAL DIAGNOSIS GASTROENTERITIS, IMPROVED DEHYDRATION, RESOLVED GERD HYPOKALEMIA, RESOLVED DEPRESSION/ANXIETY HIATAL HERNIA REPAIR DUODENAL ULCER SURGERY CHOLECYSTECTOMY, 06/12 LAST VITALS Temp Pulse Resp BP Pulse Ox 98.3 F 81 20 139/87 97 06/02/17 09:46 06/02/17 09:46 06/02/17 09:46 06/02/17 09:46 06/02/17 09:46 ACTIVE MEDICATIONS Citalopram Hydrobromide (Celexa) 40 mg PO BEDTIME REPLACED BY [facility] Last Admin: 06/01/17 21:18 Dose: 40 mg Clonazepam (Klonopin) 1 mg PO BID REPLACED BY [facility] Last Admin: 06/02/17 08:54 Dose: 1 mg Ondansetron HCL (Zofran) 4 mg PO Q6-8H PRN N/V Pantoprazole Sodium (Protonix) 40 mg PO QDAC REPLACED BY [facility] Last Admin: 06/02/17 05:58 Dose: 40 mg Ranitidine HCl (Zantac) 150 mg PO BIDAC REPLACED BY [facility] Last Admin: 06/02/17 05:59 Dose: 150 mg ALLERGIES iodine Adverse Reaction (Verified 05/29/17 15:03) methylparaben Adverse Reaction (Verified 05/29/17 15:03) povidone-iodine [From Betadine] Adverse Reaction (Verified 05/29/17 15:03) NEW PRESCRIPTIONS: FLAGYL 500 MG, TAKE ONE TABLET BY MOUTH THREE TIMES DAILY FOR 5 DAYS QUESTRAN 4 GRAMS, TAKE ONE PACKET BY MOUTH DAILY FOR 7 DAYS ZOFRAN 4 MG, TAKE ONE TABLET BY MOUTH Q 6-8 HOURS NEEDED FOR NAUSEA K-DUR 40 MEQ, TAKE ONE TABLET BY MOUTH DAILY FOR 5 DAYS SMOKING: FORMER SMOKER DISEASE SPECIFIC EDUCATION: GASTROENTERITIS DEHYDRATION GERD HYPOKALEMIA HOME MEDICATIONS NEW PRESCRIPTIONS FOLLOW UP LAB REVIEW: 06/02/17 04:30 06/02/17 04:30 06/02/17 04:30: Sodium 138, Potassium 3.7, Chloride 107, Carbon Dioxide 24, Anion Gap 10.7, BUN 13, Creatinine 0.79, Estimated GFR (MDRD) 101.00, BUN/ Creatinine Ratio 16.45, Glucose 84, Calcium 8.6, Total Bilirubin 0.64, AST 15, ALT 11 L, Alkaline Phosphatase 74, Total Protein 6.1 L, Albumin 3.2 L, Globulin 2.9, Albumin/Globulin Ratio 1.10 06/02/17 04:30: WBC 8.76, RBC 5.00, Hgb 15.7, Hct 44.6, MCV 89.2, MCH 31.4 H, MCHC 35.2, RDW Coeff of Dee 12.6, Plt Count 224, Immature Gran % (Auto) 0.3, Neut % (Auto) 66.0, Lymph % (Auto) 16.8, [place] % (Auto) 10.6 H, Eos % (Auto) 5.4 , Baso % (Auto) 0.9, Immature Gran # (Auto) 0.0, Neut # 5.8, Lymph # 1.5, [place] # 0.9, Eos # 0.5, Baso # 0.1 PLAN: DISCHARGE HOME TODAY RETURN TO SEE DR. MUELLER IN 5-7 DAYS. PLEASE PHONE HIS OFFICE TO SCHEDULE YOUR APPOINTMENT [phone] RESUME YOUR HOME MEDICATIONS PER LIST PROVIDED BY THE NURSING STAFF NEW PRESCRIPTIONS FLAGYL 500 MG, TAKE ONE TABLET BY MOUTH THREE TIMES DAILY FOR 5 DAYS QUESTRAN 4 GRAMS, TAKE ONE PACKET BY MOUTH DAILY FOR 7 DAYS ZOFRAN 4 MG, TAKE ONE TABLET BY MOUTH Q 6-8 HOURS NEEDED FOR NAUSEA K-DUR 40 MEQ, TAKE ONE TABLET BY MOUTH DAILY FOR 5 DAYS DIET HEALTHY HEART TOLERATED ACTIVITY GET PLENTY OF REST AT HOME GRADUALLY INCREASE YOUR ACTIVITY LEVEL ACCORDING TO YOUR TOLERATION SUMMARY THE PATIENT IS ALERT AND ORIENTED X3. HE CURRENTLY RESIDES AT HOME WITH HIS FAMILY. HE IS INDEPENDENT WITH ADL'S AND DOES NOT REQUIRE ANY DME, HOME HEALTH OR HOMEMAKING SERVICES FOR ASSISTANCE. HE DESIRES TO RETURN HOME AT DISCHARGE. THE SKIN TURGOR IS INTACT AND WITHOUT DECUBITUS ULCERS. HYDRATION AND NUTRITIONAL STATUS ARE IMPROVED FROM ADMISSION. THE PATIENT IS AWARE AND AGREEABLE FOR DISCHARGE TODAY. CURRENT CODE STATUS FULL CODE HUMA CHASE APRN MOUNA MUELLER M.D.
--- NOTE | 2017-06-02 15:05 | PN ---
DATE OF SERVICE: 05/31/17 SUBJECTIVE: 56 year old white male hospitalized with acute gastroenteritis which seems to have resolved. He is still weak, tired and sleepy. The patient's condition has improved. His existing problem is anxiety disorder and some depression. The patient still a lot better then what he was nearly a year and a half ago. He continued to lose weight and now he is weight is stable and in fact has gained some. He still has some anxiety problem. The patient is on Klonopin and Celexa which seems to be working well. He has no suicidal or homicidal ideas or tendency. I had interviewed his and she is of the same opinion. REVIEW OF SYSTEMS: CONSTITUTIONAL: No night sweats. No fatigue, malaise, lethargy. No fever or chills. HEENT: Eyes: No visual changes. No eye pain. No eye discharge. ENT: No runny nose. No epistaxis. No sinus pain. No sore throat. No odynophagia. No congestion. RESPIRATORY: No cough, no congestion. No hemoptysis. No shortness of breath. CARDIOVASCULAR: No angina symptoms. No CHF symptoms. No atypical chest pain for CAD. No palpitations. No orthopnea. GASTROINTESTINAL: No abdominal pain. Nausea and vomiting has practically subsided. No diarrhea or constipation. No hematemesis. No hematochezia. GENITOURINARY: No urgency. No frequency. No dysuria. No hematuria. No obstructive symptoms. No discharge. No pain. No significant abnormal bleeding. MUSCULOSKELETAL: No musculoskeletal pain; no joint swelling. NEUROLOGICAL: No headache. No neck pain. No syncope. No seizures. No dizziness. PSYCHIATRIC: Not anxious. No depression. No suicidal thoughts. No homicidal thoughts. SKIN: No rash. No lesions. No wounds. ENDOCRINE: No unexplained weight loss. No weight gain. HEMATOLOGIC/LYMPHATIC: No anemia. No purpura. No petechiae. No prolonged or excessive bleeding. No palpable lymph nodes. PHYSICAL EXAMINATION: VITAL SIGNS: Temperature 98, pulse 68, respiratory rate 18, blood pressure 132/ 70 and pulse ox 96%. HEENT: Head normocephalic, atraumatic. Eyes: Extraocular muscles are intact. Pupils are equal, round and reactive to light and accommodation. Ears: No lesions. Nose appeared normal. Throat: No exudate or erythema. NECK: Supple. No JVD, no carotid bruit. No lymphadenopathy or thyromegaly. LUNGS: Decreased breath sounds but clear to auscultation. Percussion note normal. Chest symmetrical. HEART: S1, S2, no S3. No murmurs. No cyanosis or clubbing. No ascites. Pulses: Dorsalis pedis and posterior tibial pulses +1 to +2 both sides. ABDOMEN: Soft. Nontender. Bowel sounds active. No CVA tenderness. No mass felt. EXTREMITIES: No edema. Full range of motion of all extremities, equal. NEUROLOGIC: No focal deficit. Cranial nerves II through XII are grossly intact. No headache, no double vision or headache. SKIN: Not dry. Intact. Turgor - normal. LYMPHATIC: No palpable lymph nodes/no lymphedema. MUSCULOSKELETAL: Normal joints with no swelling. Muscle tone is normal. LABS: All normal except for potassium 3.3 ASSESSMENT: 1. Symptomatic acute gastroenteritis PLAN: 1. The patient is almost on regular diet 2. He is up and about 3. IV has been discontinued 4. The patient was unable to give any stool sample because practically he had no stools except for one or two after he was hospitalized 5. He doesn't have any real symptoms of C-Diff, we will forget about it CONDITION: Stable TIME SPENT: More than 30 minutes. Plan and coordination of the patient's care discussed in the presence of nurse. ADELA
--- NOTE | 2017-06-03 07:51 | ECHO2D ---
Date of Exam: 06/02/17 Ordering Physician: MOUNA MUELLER Room #: 122 Reason for Echo: ABNORMAL EKG, INFERIOR WALL HI M-Mode Normal Adult Results LV Dimensions Normal Adult Results AoV Opening excursions >1.6 >1.6 LVEDD-base- 3.5-5.8 4.7 Ao root dimensions 2.0-3.7 4.1 LVESD-base- 3.1-4.6 L. Atrium dimensions 1.9-3.8 3.8 Post. Wall thickness 0.8-1.1 1.1 IV septum (thickness) 0.7-1.2 1.2 Post. Wall excursion 0.72-1.3 NORMAL Septal motion NORMAL Systolic motion R. Ventricular cavity 1.5-2.0 NORMAL LVEF 60% 57% Paradoxical septal wall motion NORMAL 2-D : 2-D M Mode Echocardiogram was performed using apical four chamber and left parasternal long and short axis views. Mitral, tricuspid and aortic valves appear to be normal. Contractility of the left ventricle seems to be normal, so is the cavity size. Left atrial cavity size and aortic root appear to be normal. There is no pericardial effusion. There is no thrombus noted in the left ventricular or left aortic cavity. No mitral valve prolapse noted. M-MODE: MV: NORMAL AV: NORMAL TV: NORMAL PV: CHAMBER SIZE: NORMAL WALL MOTION: NORMAL PERICARDIUM: NORMAL INTERPRETATION: 1. BORDERLINE LEFT VENTRICULAR HYPERTROPHY 2. NORMAL VALVES 3. NORMAL LEFT VENTRICULAR CONTRACTILITY MTDD
--- NOTE | 2017-06-03 08:24 | PN ---
DATE OF SERVICE: 06/01/17 SUBJECTIVE: 56 year old white male hospitalized with acute gastroenteritis. The patient's condition has improved. He is up and about. Mildly hypokalemia. PHYSICAL EXAMINATION: HEENT: Head normocephalic, atraumatic. Eyes: Extraocular muscles are intact. Pupils are equal, round and reactive to light and accommodation. Ears: No lesions. Nose appeared normal. Throat: No exudate or erythema. NECK: Supple. No JVD, no carotid bruit. No lymphadenopathy or thyromegaly. LUNGS: Clear to auscultation. Percussion note normal. Chest symmetrical. HEART: S1, S2, no S3. No murmurs. No cyanosis or clubbing. No ascites. Pulses: Dorsalis pedis and posterior tibial pulses +1 to +2 both sides. ABDOMEN: Soft. Nontender. Bowel sounds active. No CVA tenderness. No mass felt. EXTREMITIES: No edema. Full range of motion of all extremities, equal. NEUROLOGIC: No focal deficit. Cranial nerves II through XII are grossly intact. No headache, no double vision or headache. SKIN: Not dry. Intact. Turgor - normal. Hydration status has improve. LYMPHATIC: No palpable lymph nodes/no lymphedema. MUSCULOSKELETAL: Normal joints with no swelling. Muscle tone is normal. LABS: EKG has normal inferoseptal wall DE. PLAN: 1. To rule out cardiomyopathy he needs 2DM Mode echo. The patient was seen and examined with Nurse Practitioner and Neurocritical Care Physician. TIME SPENT: More than 30 minutes. Plan and coordination of the patient's care discussed in the presence of nurse. ADELA
--- NOTE | 2017-06-04 14:18 | DS ---
DATE OF SERVICE: 06/02/17 FINAL DIAGNOSIS: 1. Gastroenteritis, improved 2. Dehydration, resolved 3. GERD 4. Hypokalemia, resolved 5. Depression/anxiety 6. Hiatal Hernia repair 7. Duodenal Ulcer Surgery 8. Cholecystectomy LAST VITALS: Temperature 98.3, pulse 81, respiratory rate 20, blood pressure 139/87 and pulse ox 97%. DISCHARGE INSTRUCTIONS: Discharge home today. Return to see Dr. Kelly 5-7 days. Resume home medications as per list provided by the nursing staff. MEDICATIONS AT DISCHARGE: Celexa 40mg PO bedtime Klonopin 1mg Po twice a day Zofran 4mg PO Q 6-8 hours PRN Protonix 40mg PO QDAC Zantac 150mg PO twice a day ALLERGIES: Iodine Methylparaben Povidone-iodine NEW PRESCRIPTIONS: Flagyl 500mg take one tablet by mouth three times daily for 5 days Questran 4grams, take one packet by mouth daily for 7 days Zofran 4mg take one tablet by mouth Q 6-8 hours as needed for nausea K-Dur 40meq, take one tablet by mouth daily for 5 days. DIET INSTRUCTIONS: Healthy Heart As tolerated ACTIVITY: Get plenty of rest at home. Gradually increase activity level according to toleration SMOKING: Former smoker DISEASE SPECIFIC EDUCATION: Gastroenteritis Dehydration GERD Hypokalemia Home medications New prescriptions Followup HOSPITAL COURSE: 56 year old white male who presented to the emergency room complaining of nausea , vomiting and diarrhea for the past two days. He was having abdominal pain. He has a history of dumping syndrome and weight loss. CT scan of abdomen revealed acute gastroenteritis, no diverticulitis and no abscess in the colon and no obstruction. He was admitted and placed on IV fluids at 75cc an hour. He was started on Rocephin 1 gram IV daily due to WBC of up to 18,000. Started on Flagyl 500mg IV Q 6 hours. Continued with his Protonix and Zantac which he takes daily. Over the course of the next several days his pain significantly improved. Today on day of discharge he is having no pain. His diarrhea has slowly improved. He is no longer nauseated and has not vomited for two days. He did have some Hypokalemia yesterday with the potassium down to 3.4 likely to do diarrhea. He has been able to eat bland foods and keep them down. His appetite has slowly improving. He has having some looser stools yesterday. They are not diarrhea they are just looser. The patient says that he never has formed stools after having his gallbladder out. WBC significantly improved from 18,000 today it's 8.76, hgb 15.7, hct 44.6, plt count 224. Again potassium has improved after putting him on 40meq twice a day yesterday. We will send him home on 40meq daily for the next week. His potassium is at 3.7 today. Sodium is normal at 138, BUN at 13 and creatinine at 0.79. We will send him home with Flagyl 500mg PO three times a day for the next 5 days along with Zofran 4mg Q 6 hours PRN as needed for nausea if he recurs. We also will try Questran 4grams daily to see if this helps with his diarrhea due to it likely being a combination of residual gastritis and the fact that he has had his gallbladder out. His vital signs have all been stable. Today on day of discharge Temperature 98.2, heart rate 63, respiratory 18, blood pressure 123/85 and pulse ox 97%. He has been and about for the past two day walk around. he has remained in normal sinus rhythm and has been eating 75-100% of his meals. He is instructed that he can resume his regular diet as tolerated. To continue with increased fluids and increase rest. We will followup with him on Thursday in the office. TIME SPENT: More than 60 minutes. ADELA
--- NOTE | 2017-06-05 14:25 | PN ---
DATE OF SERVICE: 06/02/17 SUBJECTIVE: The patient is going to be discharged home. He is stable. No gastroenteritis noted. Echo normal, 2DM-Mode echo. The patient is going to be discharged on Flagyl. Continue the rest of the medication. His mental status is stable with no anxiety at present time. There are no suicidal or homicidal tendency. He has normal though process and behavior. The patient was seen and examined with Nurse Practitioner and Outside Sales Associate. TIME SPENT: More than 30 minutes. Plan and coordination of the patient's care discussed in the presence of nurse. ADELA
== END 2017-06-02 13:45 | disposition home or self-care (01) | DRG 392 ==
LOC: ED 14:55 → MEDSURG B 18:14
PROVIDERS: ADMIT Internal Medicine; ATTEND Internal Medicine
DX: K52.9 Noninfective gastroenteritis and colitis, unspecified (principal); R10.84 Generalized abdominal pain; E86.0 Dehydration; I25.2 Old myocardial infarction; K21.9 Gastro-esophageal reflux disease without esophagitis; E87.6 Hypokalemia; F41.8 Other specified anxiety disorders; R11.0 Nausea; Z79.899 Other long term (current) drug therapy; Z90.49 Acquired absence of other specified parts of digestive tract; Z98.890 Other specified postprocedural states
CPT/HCPCS: 36415; 80053; 81001; 82550; 83605; 84484; 85025; 87040; 87651; 87804; 87880; 93005; 93010; 96361; 96365; 96366; 96375; 99284

== ENCOUNTER 2017-06-10 09:54 | Outpatient (CLI) ==
--- NOTE | 2017-06-10 11:20 | CT ---
Exam: CT of the abdomen pelvis with intravenous contrast. Comparison: 05/29/2017. Reason for exam: Adrenal mass. FINDINGS: Atelectasis in the partially imaged lung bases with old granulomas disease. The gallbladder has been removed. There is mild thickening of the distal esophagus. The liver, spleen, right adrenal gland, and pancreas appear grossly unremarkable. Similar appearing indeterminate density nodule is seen in the left adrenal gland. No focal small bow el dilatation or evidence of obstruction. The appendix is unremarkable. No intra-abdominal free air or pelvic free fluid. Surgical changes are seen in the right sal pelvis. The bladder appears grossly unremarkable. The prostate is mildly prominent in size causing impression on the posterior urinary bladder. 2 mm stone is seen in the left renal collecting system. No hydronephrosis or hydroureter is seen in either kidney. Degenerative disease is seen in the lumbosacral spine with intervertebral body disc space height narr owing most notably at L4-L5 and L5-S1. No suspicious appearing osteoblastic or osteolytic lesions. Impression: 1. Indeterminate density nodule in the left adrenal gland measuring approximately 2.[address] adrenal gland protocol may be performed for further characterization. 2. No acute imaging findings are seen within the abdomen or pelvis.
== END 2017-06-10 09:55 | disposition home or self-care (01) ==
LOC: RAD 09:54
PROVIDERS: ATTEND Internal Medicine
DX: E27.9 Disorder of adrenal gland, unspecified (principal)

== ENCOUNTER 2017-06-18 07:57 | Outpatient (CLI) ==
--- NOTE | 2017-06-18 10:10 | CT ---
EXAM: CT of the abdomen with and without contrast History: No adrenal masses. Comparison: CT abdomen pelvis 06/10/2017, CT abdomen pelvis 05/05/2013 Technique: Multiplanar CT images through the abdomen were obtained with and without the administratio n of IV contrast Findings: Subsegmental atelectasis seen at the lung bases. No acute osseous abnormalities. Degenera tive changes within the lower lumbar spine Status post cholecystectomy. No focal liver or splenic lesions. Atherosclerotic vascular calcificati ons are mild. No peripancreatic inflammation or pancreatic lesions. A few 2 mm left renal calculi. No hydronephrosis. Benign bilateral adrenal adenomas have been stable since 2012. No dilated loops of bowel. No free air and no ascites. No renal masses. No enlarged lymph nodes. Impression: 1. Benign bilateral adrenal adenomas. No additional follow-up is necessary. 2. No acute intra-abdominal process. 3. Nonobstructing left nephrolithiasis
== END 2017-06-18 07:58 | disposition home or self-care (01) ==
LOC: RAD 07:57
PROVIDERS: ATTEND Internal Medicine
DX: E27.8 Other specified disorders of adrenal gland (principal)

== ENCOUNTER 2017-08-11 10:51 | Outpatient (CLI) | END 2017-08-11 10:52 | disposition home or self-care (01) | LOC: LAB 10:51 | PROVIDERS: ATTEND Internal Medicine | DX: E78.5 Hyperlipidemia, unspecified (principal); K52.9 Noninfective gastroenteritis and colitis, unspecified; Z79.899 Other long term (current) drug therapy; Z12.5 Encounter for screening for malignant neoplasm of prostate | CPT/HCPCS: 36415; 80053; 80061; 83036; 84443; 85025 ==

== ENCOUNTER 2017-12-31 14:21 | Inpatient (IN) ==
[2017-12-31 14:58] VITALS: BMI 24.3
[2017-12-31] MEDS ORDERED: PROTONIX IV IVP STA (15:57)
[2017-12-31] MEDS ORDERED: XANAX PO STA (15:59)
[2017-12-31] MEDS ORDERED: MORPHINE 4 MG/ML VIAL IVP PRN (15:59)
[2017-12-31] MEDS ORDERED: TYLENOL PO PRN (15:59)
[2017-12-31] MEDS ORDERED: VISTARIL INJ IM PRN (15:59)
[2017-12-31] MEDS ORDERED: NITROSTAT SL PRN (15:59)
[2017-12-31] MEDS ORDERED: ATROPINE SULFATE PFS IVP PRN (15:59)
[2017-12-31] MEDS ORDERED: PROTONIX PO PRN (16:11)
[2017-12-31] MEDS ORDERED: ZOFRAN TAB PO PRN ×2 (16:25→19:26)
[2017-12-31] MEDS: SODIUM CHLORIDE 1,000 ML IV SCH (16:51)
[2017-12-31] MEDS ORDERED: ZOFRAN 4 MG/2 ML IVP SCH (17:00)
[2017-12-31] MEDS ORDERED: ZANTAC IVP SCH (18:00)
[2017-12-31] MEDS ORDERED: KLONOPIN ONE (20:52)
[2017-12-31] MEDS: CELEXA PO SCH (20:57)
[2017-12-31] MEDS: ZANTAC PO SCH (20:57)
[2017-12-31] MEDS ORDERED: NON-FORMULARY MEDICATION (Clonazepam [Klonopin] 1 MG) PO SCH (21:00)
[2017-12-31] MEDS ORDERED: ZANTAC PO SCH (21:00)
[2017-12-31] MEDS ORDERED: KLONOPIN PO SCH (21:00)
[2017-12-31] MEDS ORDERED: NON-FORMULARY MEDICATION (Citalopram Hydrobromide [Celexa] 40 MG) PO SCH (21:00)
--- NOTE | 2018-01-01 03:01 | DI ---
EXAM: Chest, 2 views. HISTORY: Nausea and vomiting COMPARISON: 12/31/2017 FINDING/IMPRESSION: Cardiomediastinal countours appear stable. There is no focal pulmonary consolid ation. No pleural effusion or pneumothorax. No acute cardiopulmonary process.
[2018-01-01] MEDS: ZANTAC PO SCH ×2 (05:40→17:47)
--- NOTE | 2018-01-01 07:50 | CT ---
EXAM: CT abdomen pelvis with contrast HISTORY: Nausea, vomiting COMPARISON: 06/18/2017 TECHNIQUE: CT abdomen pelvis performed with intravenous contrast. Coronal and sagittal reformatted images obtained. FINDINGS: Mild bibasilar subsegmental atelectasis and/or scarring. Granulomatous calcification righ t lower lung. No free air. Degenerative change in the spine. Heart normal in size. Liver appears normal. Pancreas appears normal. Patient status post cholecystectomy. Pancreas appears normal. Sp wendi appears normal. Stable 3.3 cm right adrenal nodule and 2.3 cm left renal nodule, demonstrated t o be adenomas on prior CT including noncontrast imaging. Small left renal calculus. No hydronephrosi s. Sub centimeter hypodensity left kidney, too small to characterize. Mild atherosclerosis. Bladde r unremarkable. Prostate normal in size. Small fat-containing left inguinal hernia. Postsurgical ch anges right inguinal region. No lymphadenopathy or ascites. Stomach appears normal. No dilated loo ps small bowel. Appendix appears normal. Mild colonic diverticulosis. No inflammatory stranding id entified in the abdomen or pelvis. IMPRESSION: 1. No acute abnormality identified in the abdomen pelvis. 2. Left nephrolithiasis. No hydronephrosis. 3. Mild colonic diverticulosis. 4. Stable bilateral adrenal adenomas. 2
[2018-01-01] MEDS ORDERED: TORADOL IVP STA (08:35)
[2018-01-01] MEDS ORDERED: SODIUM CHLORIDE 1,000 ML IV SCH (09:00)
[2018-01-01] MEDS: K-DUR PO SCH ×2 (09:15→17:47)
[2018-01-01] MEDS: ASPIRIN EC PO SCH (09:15)
[2018-01-01] MEDS: PROTONIX PO SCH (09:15)
[2018-01-01] MEDS: KLONOPIN PO SCH ×2 (09:21→23:24)
--- NOTE | 2018-01-01 09:21 | PCM.PROG ---
Attending Provider: ATTENDING PROVIDER: Dr. MOUNA MUELLER This patient is seen with Jocelyn Salinas, Nurse Practitioner. DATE OF SERVICE: 01/01/18 SUBJECTIVE: This 57 year old WHITE/ M was hospitalized 12/31/17. The patient is sitting on side of bed, alert. He states he slept well last night. He has back pain this morning. No more chills. He has not vomited. Potassium slightly low today. REVIEW OF SYSTEMS: CONSTITUTIONAL: Weakness. No night sweats. No malaise, lethargy. No fever or chills. HEENT: Eyes: No visual changes. No eye pain. No eye discharge. ENT: No runny nose. No epistaxis. No sinus pain. No odynophagia. No congestion. RESPIRATORY: No cough, no congestion. No hemoptysis. No shortness of breath. CARDIOVASCULAR: No angina symptoms. No CHF symptoms. No atypical chest pain for CAD. No palpitations. No orthopnea.. GASTROINTESTINAL: Nausea. No abdominal pain. No vomiting. No diarrhea or constipation. No hematemesis. No hematochezia. GENITOURINARY: No urgency. No frequency. No dysuria. No hematuria. No obstructive symptoms. No discharge. No pain. No significant abnormal bleeding. MUSCULOSKELETAL: Back pain. NEUROLOGICAL: Awake, alert, oriented to time, place and person. No headache. No neck pain. No syncope. No seizures. No dizziness. PSYCHIATRIC: Not anxious. No depression. No suicidal thoughts. No homicidal thoughts. SKIN: No rash. No lesions. No wounds. ENDOCRINE: No unexplained weight loss. No weight gain. HEMATOLOGIC/LYMPHATIC: No anemia. No purpura. No petechiae. No prolonged or excessive bleeding. No palpable lymph nodes. PHYSICAL EXAMINATION: GENERAL: The patient is awake, alert and oriented, sitting on side of bed in no distress. VITAL SIGNS: Temperature 97.9 F, Pulse 72, Respiratory Rate 12, BP 137/95, Pulse Ox 94% HEENT: Head normocephalic, atraumatic. Eyes: Extraocular muscles are intact. Pupils are equal, round and reactive to light and accommodation. Ears: No lesions. Nose appeared normal. Throat: No exudate or erythema. NECK: Supple. No JVD, no carotid bruit. No lymphadenopathy or thyromegaly. LUNGS: Diminished breath sounds. Clear to auscultation. Percussion note normal. Chest symmetrical. HEART: S1, S2, no S3. No murmurs. No cyanosis or clubbing. No ascites. Pulses: Dorsalis pedis and posterior tibial pulses +1 to +2 both sides. ABDOMEN: Soft. Non-tender. Bowel sounds active. No CVA tenderness. No mass felt. EXTREMITIES: No edema. Full range of motion of all extremities, equal. NEUROLOGIC: No focal deficit. Cranial nerves II through XII are grossly intact. No headache, no double vision or headache. SKIN: Not dry. Intact. Turgor-normal. LYMPHATIC: No palpable lymph nodes/no lymphedema. MUSCULOSKELETAL: Normal joints with no swelling. Muscle tone is normal. LAB REVIEW: 01/01/18 04:30 01/01/18 04:30 01/01/18 04:30: Sodium 138, Potassium 3.3 L, Chloride 106, Carbon Dioxide 23, Anion Gap 12.3, BUN 14, Creatinine 0.82, Estimated GFR (MDRD) 96.00, BUN/ Creatinine Ratio 17.07, Glucose 113 H, Calcium 8.3, Total Bilirubin 0.7, AST 10 L, ALT 11 L, Alkaline Phosphatase 71, Total Protein 6.0 L, Albumin 3.1 L, Globulin 2.9, Albumin/Globulin Ratio 1.07 01/01/18 04:30: WBC 10.66 H, RBC 4.97, Hgb 14.8, Hct 43.9, MCV 88.3, MCH 29.8, MCHC 33.7, RDW Coeff of Dee 12.5, Plt Count 219, Immature Gran % (Auto) 0.3, Neut % (Auto) 63.6, Lymph % (Auto) 26.0, George % (Auto) 8.8, Eos % (Auto) 0.9, Baso % (Auto) 0.4, Immature Gran # (Auto) 0.0, Neut # (Auto) 6.8, Lymph # (Auto ) 2.8, George # (Auto) 0.9, Eos # (Auto) 0.1, Baso # (Auto) 0.0 01/01/18 00:30: Total Creatine Kinase 33, Troponin I < 0.0100 12/31/17 16:13: Sodium 140, Potassium 3.8, Chloride 104, Carbon Dioxide 25, Anion Gap 14.8, BUN 15, Creatinine 0.88, Estimated GFR (MDRD) 89.00, BUN/ Creatinine Ratio 17.04, Glucose 109 H, Calcium 9.3, Total Bilirubin 0.7, AST 11 L, ALT 13, Alkaline Phosphatase 78, Total Protein 7.6, Albumin 3.8, Globulin 3.8 , Albumin/Globulin Ratio 1.00, Amylase 51, Lipase 12 12/31/17 16:13: WBC 12.80 H, RBC 5.44, Hgb 16.4, Hct 47.4, MCV 87.1, MCH 30.1, MCHC 34.6, RDW Coeff of Dee 12.6, Plt Count 237, Immature Gran % (Auto) 0.5, Neut % (Auto) 83.2, Lymph % (Auto) 9.1 L, George % (Auto) 7.0, Eos % (Auto) 0.0, Baso % (Auto) 0.2, Immature Gran # (Auto) 0.1, Neut # (Auto) 10.6 H, Lymph # ( Auto) 1.2, George # (Auto) 0.9, Eos # (Auto) 0.0, Baso # (Auto) 0.0 12/31/17 16:13: Total Creatine Kinase 41, Troponin I < 0.0100 ASSESSMENT: ACUTE GASTROENTERITIS DEHYDRATION HYPOKALEMIA CHRONIC LOW BACK PAIN PLAN: Will decrease IV fluids 75 mL/HR Potassium 20 mEq B.I.D. Toradol 30 mg IV q.8hr Plan and coordination of the patient's care discussed in the presence of Plate Painter and nurse. CONDITION: Stable SCRIBED BY: Sheryl GARZA scribed while in presence of service performed by Dr. Mueller/Jocelyn Salinas APRN on 01/01/18 ([id number])
[2018-01-01] MEDS ORDERED: TORADOL IVP PRN (17:00)
[2018-01-01] MEDS: CELEXA PO SCH (23:23)
[2018-01-02] MEDS: PROTONIX PO SCH (06:30)
[2018-01-02] MEDS: ZANTAC PO SCH ×2 (06:31→17:02)
[2018-01-02] MEDS: KLONOPIN PO SCH ×2 (08:34→22:41)
[2018-01-02] MEDS: K-DUR PO SCH ×2 (08:34→17:02)
[2018-01-02] MEDS: ASPIRIN EC PO SCH (08:34)
[2018-01-02] MEDS: SODIUM CHLORIDE 1,000 ML IV SCH (08:35)
[2018-01-02] MEDS: CELEXA PO SCH (22:38)
[2018-01-03] MEDS: ZANTAC PO SCH (06:11)
[2018-01-03] MEDS: PROTONIX PO SCH (06:11)
[2018-01-03] MEDS: ASPIRIN EC PO SCH (08:25)
[2018-01-03] MEDS: K-DUR PO SCH (08:25)
[2018-01-03] MEDS: KLONOPIN PO SCH (08:25)
[2018-01-03 10:08] VITALS: BP 125/90; TEMP 97.4
--- NOTE | 2018-01-04 09:12 | DS ---
DATE OF SERVICE: 01/03/15 FINAL DIAGNOSIS: 1. Acute gastroenteritis 2. Dehydration 3. Hypokalemia 4. Depression 5. Reflux disease DISCHARGE INSTRUCTIONS: Discharge home. No work until the patient is seen in the office. The patient is instructed to return to ER if symptoms of gastroenteritis returns. MEDICATIONS AT DISCHARGE: Celexa Klonopin Protonix Zantac Zofran NEW PRESCRIPTIONS: None DIET INSTRUCTIONS: Regular ACTIVITY: As tolerated, rest. SMOKING: Counseling for smoking done. DISEASE SPECIFIC EDUCATION: Appointment Gastroenteritis Hydration HOSPITAL COURSE: 57 year old white male was seen in the office with acute gastroenteritis. The patient in the hospital was treated symptomatically with Vistaril, Toradol, IV fluids, Zofran intermittently. The patient's condition improved. Potassium supplements were given for hyponatremia. Zantac was continued for gastritis. The patient's as usual is abnormal with poor R wave progression, inferior wall TN but is echo has practically normal with normal ejection in the past. The patient's did not have any cardiovascular problems. CONDITION: Stable. TIME SPENT: More than 60 minutes. [facility] HOSPITALCaity
--- NOTE | 2018-01-04 09:13 | PN ---
12/31/17: Level 5 01/01/18: Intermediate 01/02/18: Intermediate 01/03/18: D as in discharge MTDD
--- NOTE | 2018-01-04 11:42 | PN ---
DATE OF SERVICE: 01/03/18 SUBJECTIVE: 57-year-old white male hospitalized with acute gastroenteritis, dehydration. The patient's condition has improved. Hydration status has improved. He is feeling a lot better. He is keeping the food down. Bowel movements are practically regular. He is up and about. REVIEW OF SYSTEMS: CONSTITUTIONAL: No night sweats. No fatigue, malaise, lethargy. No fever or chills. HEENT: Eyes: No visual changes. No eye pain. No eye discharge. ENT: No runny nose. No epistaxis. No sinus pain. No sore throat. No odynophagia. No congestion. RESPIRATORY: No cough, no congestion. No hemoptysis. No shortness of breath. CARDIOVASCULAR: No angina symptoms. No CHF symptoms. No atypical chest pain for CAD. No palpitations. No orthopnea. No PND. GASTROINTESTINAL: No abdominal pain. No nausea or vomiting. No diarrhea or constipation. No hematemesis. No hematochezia. GENITOURINARY: No urgency. No frequency. No dysuria. No hematuria. No obstructive symptoms. No discharge. No pain. No significant abnormal bleeding. MUSCULOSKELETAL: No musculoskeletal pain; no joint swelling. NEUROLOGICAL: No headache. No neck pain. No syncope. No seizures. No dizziness. PSYCHIATRIC: Not anxious. No depression. No suicidal thoughts. No homicidal thoughts. SKIN: No rash. No lesions. No wounds. ENDOCRINE: No unexplained weight loss. No weight gain. HEMATOLOGIC/LYMPHATIC: No anemia. No purpura. No petechiae. No prolonged or excessive bleeding. No palpable lymph nodes. PHYSICAL EXAMINATION: VITAL SIGNS: Temperature 97.7, pulse 70, respiratory rate 16, BP 153/98, pulse ox 97%. HEENT: Head normocephalic, atraumatic. Eyes: Extraocular muscles are intact. Pupils are equal, round and reactive to light and accommodation. Ears: No lesions. Nose appeared normal. Throat: No exudate or erythema. NECK: Supple. No JVD, no carotid bruit. No lymphadenopathy or thyromegaly. LUNGS: Clear to auscultation. Percussion note normal. Chest symmetrical. HEART: S1, S2, no S3. No murmurs. No cyanosis or clubbing. No ascites. Pulses: Dorsalis pedis and posterior tibial pulses +1 to +2 both sides. ABDOMEN: Soft. Nontender. Bowel sounds active. No CVA tenderness. No mass felt. EXTREMITIES: No edema. Full range of motion of all extremities, equal. NEUROLOGIC: No focal deficit. Cranial nerves II through XII are grossly intact. No headache, no double vision or headache. SKIN: Warm and dry Intact. Turgor - better. LYMPHATIC: No palpable lymph nodes/no lymphedema. MUSCULOSKELETAL: Normal joints with no swelling. Muscle tone is normal. ASSESSMENT: 1. ACUTE GASTROENTERITIS, RESOLVED. 2. HYPOKALEMIA, RESOLVED. PLAN: 1. Discharge the patient home. 2. Continue the same medications. 3. Advised to rest. 4. The patient will be seen on Thursday. TIME SPENT: More than 30 minutes. Plan and coordination of the patient's care discussed in the presence of nurse. ADELA
--- NOTE | 2018-01-04 15:50 | PN ---
DATE OF SERVICE: 01/02/18 SUBJECTIVE: The patient was seen and examined with the nurse practitioner. The patient was hospitalized with acute gastroenteritis, seems to be improving. Will discontinue telemetry. The blood pressure was taken again 139/88. The patient will likely be discharged tomorrow. CONDITION: Improving. TIME SPENT: More than 30 minutes. Plan and coordination of the patient's care discussed in the presence of nurse. ADELA
--- NOTE | 2018-01-05 11:04 | PN ---
DATE OF SERVICE: 01/02/18 SUBJECTIVE: The patient is resting comfortably and he states this morning that he is finally feeling a little bit better. He is not having any abdominal pain. This morning he has been able to eat. Kidney functions are back to normal. We have stopped his IV fluids. Blood pressure is stabilized REVIEW OF SYSTEMS: CONSTITUTIONAL: No night sweats. Fatigue, malaise. No fever or chills. HEENT: Eyes: No visual changes. No eye pain. No eye discharge. ENT: No runny nose. No epistaxis. No sinus pain. No sore throat. No odynophagia. No congestion. RESPIRATORY: No cough, no congestion. No hemoptysis. No shortness of breath. CARDIOVASCULAR: No angina symptoms. No CHF symptoms. No atypical chest pain for CAD. No palpitations. No orthopnea. GASTROINTESTINAL: No abdominal pain. Intermittent nausea. Diarrhea No hematemesis. No hematochezia. GENITOURINARY: No urgency. No frequency. No dysuria. No hematuria. No obstructive symptoms. No discharge. No pain. No significant abnormal bleeding. MUSCULOSKELETAL: No musculoskeletal pain; no joint swelling. NEUROLOGICAL: No headache. No neck pain. No syncope. No seizures. No dizziness. PSYCHIATRIC: Not anxious. No depression. No suicidal thoughts. No homicidal thoughts. SKIN: No rash. No lesions. No wounds. ENDOCRINE: No unexplained weight loss. No weight gain. HEMATOLOGIC/LYMPHATIC: No anemia. No purpura. No petechiae. No prolonged or excessive bleeding. No palpable lymph nodes. PHYSICAL EXAMINATION: HEENT: Head normocephalic, atraumatic. Eyes: Extraocular muscles are intact. Pupils are equal, round and reactive to light and accommodation. Ears: No lesions. Nose appeared normal. Throat: No exudate or erythema. NECK: Supple. No JVD, no carotid bruit. No lymphadenopathy or thyromegaly. LUNGS:Diminished breath sounds. Percussion note normal. Chest symmetrical. HEART: S1, S2, no S3. No murmurs. No cyanosis or clubbing. No ascites. Pulses: Dorsalis pedis and posterior tibial pulses +1 to +2 both sides. ABDOMEN: Soft. Nontender. Bowel sounds active. No CVA tenderness. No mass felt. EXTREMITIES: No edema. Full range of motion of all extremities, equal. NEUROLOGIC: No focal deficit. Cranial nerves II through XII are grossly intact. No headache, no double vision or headache. SKIN: Not dry. Intact. Turgor - normal. LYMPHATIC: No palpable lymph nodes/no lymphedema. MUSCULOSKELETAL: Normal joints with no swelling. Muscle tone is normal. ASSESSMENT: 1. Acute gastroenteritis seems to be improving 2. Dehydration which has resolved 3. GERD 4. Anxiety 5. Hypokalemia seems to be improving PLAN: 1. We will continue to give Zofran 2. Protonix twice daily 3. He has not needed his pain medication 4. Will continue 20meq of Potassium, this has improved from yesterday was 3.3 and now 3.7. 5. Anticipate possible Discharge tomorrow home. 6. He is in stable condition. TIME SPENT: More than 30 minutes. Plan and coordination of the patient's care discussed in the presence of nurse. ADELA
== END 2018-01-03 10:58 | disposition home or self-care (01) | DRG 392 ==
LOC: MEDSURG A 14:21
PROVIDERS: ADMIT Internal Medicine; ATTEND Internal Medicine
DX: R10.9 Unspecified abdominal pain (principal); E87.6 Hypokalemia; E86.0 Dehydration; K21.9 Gastro-esophageal reflux disease without esophagitis; I10 Essential (primary) hypertension; M54.9 Dorsalgia, unspecified; F32.9 Major depressive disorder, single episode, unspecified; F41.9 Anxiety disorder, unspecified
CPT/HCPCS: 36415; 80053; 81001; 82150; 82550; 83690; 84484; 85025; 93005; 93010

== ENCOUNTER 2018-03-21 09:36 | Emergency (ER) ==
[2018-03-21 09:42] VITALS: BP 125/84; TEMP 98.5; BMI 25.0
[2018-03-21] MEDS ORDERED: EYE-STREAM OP STA (09:46)
[2018-03-21] MEDS ORDERED: TETRACAINE 0.5% OPTH SOL OP STA (09:47)
[2018-03-21] MEDS ORDERED: GENTAK OPTH OINT OP STA (10:02)
--- NOTE | 2018-03-21 10:04 | ED.PDOC ---
General ED Provider: Dr. CLARITA BACON-ER Chief Complaint: Eye Problem Stated Complaint: i was grinding and i have something in my right eye Time Seen by Physician: 09:45 Mode of Arrival: Walk-In Information Source: Patient, Family Exam Limitations: No limitations Primary Care Provider: MOUNA MUELLER Nursing and Triage Documentation Reviewed and Agree: Yes Does patient meet sepsis criteria?: No System Inflammatory Response Syndrome: Not Applicable Sepsis Protocol: For patient's 13 years and over: Temp is 96.8 and below OR 101 and greater Pulse >90 BPM Resp >20/minute Acutely Altered Mental Status Are patient's symptoms suggestive of a new infection, such as: -Pneumonia -Skin, Soft Tissue -Endocarditis -UTI -Bone, Joint Infection -Implantable Device -Acute Abdominal Infection -Wound Infection -Meningitis -Blood Stream Catheter Infection -Unknown EENT Complaint Exam - Eye Complaint/Exam Onset/Duration: 2 days Symptoms Are: Still present Timing: Constant Initial Severity: Mild Current Severity: Mild Location: Discreet, Right Character: Reports: Dull, Throbbing Aggravating: Reports: Blinking Alleviating: Reports: None Associated Signs and Symptoms: Reports: Clear drainage, Vision impairment Related History: Reports: Foreign body Eye Surgical History: Reports: None Penetrating Injury Risk Factors: None Globe Rupture Risk Factors: None Acute Glaucoma Risk Factors: None Optic Artery Occlusion Risk Factors: None Visual Field: Normal Extraocular Movement: Normal Orbit Findings: Normal Globe Findings: Intact Lid Findings: Normal Conjunctival Findings: Red Corneal Findings: Clear Fluorescein Uptake: Yes Fundi: Normal Slit Lamp Used: No Differential Diagnoses: Foreign Body Review of Systems - Review Of Systems Constitutional: Reports: No symptoms Eyes: Reports: Foreign body sensation, Pain Ears, Nose, Mouth, Throat: Reports: No symptoms Respiratory: Reports: No symptoms Cardiac: Reports: No symptoms GI: Reports: No symptoms : Reports: No symptoms Musculoskeletal: Reports: No symptoms Skin: Reports: No symptoms Neurological: Reports: No symptoms Endocrine: Reports: No symptoms Hematologic/Lymphatic: Reports: No symptoms All Other Systems: Reviewed and Negative Past Medical History - Past Medical History Previously Healthy: Yes Endocrine: Reports: None Cardiovascular: Reports: Hypertension Respiratory: Reports: None Hematological: Reports: None Gastrointestinal: Reports: None Genitourinary: Reports: None Neuro/Psych: Reports: None Musculoskeletal: Reports: None Cancer: Reports: None - Surgical History General Surgical History: Reports: Unknown - Family History Family History: Reports: Unknown - Social History Smoking Status: Current some day smoker Hx Substance Use: No Alcohol Screening: None - Immunizations Tetanus Shot up to Date: No Physical Exam - Physical Exam Appearance: Well-appearing, No pain distress, Well-nourished Pain Distress: Mild Eyes: MICHAELLE, EOMI, Conjunctiva inflammed ENT: Ears normal, Nose normal, Oropharynx normal Neck: Supple Respiratory: Airway patent, Breath sounds clear, Breath sounds equal, Respirations nonlabored Cardiovascular: RRR, Pulses normal, No rub, No murmur GI/: Soft, Nontender, No masses, Bowel sounds normal, No Organomegaly Musculoskeletal: Normal strength, ROM intact, No edema, No calf tenderness Skin: Warm, Dry, Normal color Neurological: Sensation intact, Motor intact, Reflexes intact, Cranial nerves intact, Alert, Oriented Psychiatric: Affect appropriate, Mood appropriate Procedures - Eye Procedure Location of Foreign Body: right eye Tetracaine Drops Administered: Yes Eye FB Removal: Other (attempted removal with cotton swab) Depth: Superficial Foreign Body Completely Removed: No Eye Irrigated: Yes Physician Notification - Case Discussed Physician Notified: dr calderón--wants to see him 9am tomorrow Time of Notification: 10:05 Critical Care Note - Critical Care Note Total Time (mins): 0 Course - Course Orders, Labs, Meds: Orders Category Date Time Status Eye [ED EYE PATCH] .ONCE EMERGENCY 03/21/18 09:46 Active Balanced Salt Solution [Eye-Stream] MEDS 03/21/18 09:46 Discontinued 1 bottle OP ONCE STA Gentamicin Sulfate [Gentak Opth Oint] MEDS 03/21/18 10:02 Stat 1 applic OP ONCE STA Tetracaine HCl [Tetracaine 0.5% Opth Samantha] MEDS 03/21/18 09:47 Discontinued 2 drop OP ONCE STA Medications Generic Name Dose Route Start Last Admin Trade Name Freq PRN Reason Stop Dose Admin Gentamicin Sulfate 1 applic 03/21/18 10:02 Gentak Opth Oint OP 03/21/18 10:03 ONCE STA Discontinued Medications Generic Name Dose Route Start Last Admin Trade Name Freq PRN Reason Stop Dose Admin Eye Irrigation Solution 1 bottle 03/21/18 09:46 Eye-Stream OP 03/21/18 09:47 ONCE STA Tetracaine HCl 2 drop 03/21/18 09:47 Tetracaine 0.5% Opth Samantha OP 03/21/18 09:48 ONCE STA Vital Signs: Temp Pulse Resp BP Pulse Ox 03/21/18 09:38 98.5 F 88 16 125/84 97 Departure - Departure Time of Disposition: 10:06 Disposition: HOME SELF-CARE Discharge Problem: Foreign body, eye Qualifiers: Encounter type: initial encounter Laterality: right Qualified Code(s): T15.91XA - Foreign body on external eye, part unspecified, right eye, initial encounter Instructions: Eye Foreign Body (ED) Condition: Good Pt referred to PMD for follow-up: Yes IPMP verified?: No Additional Instructions: keep eye patch on--gentamycin solution apply q 4hrs--see dr stephane pérez 9 am-- norco 7.5mg q 4hrs prn pain #12-- Allergies/Adverse Reactions: Allergies iodine Adverse Reaction (Verified 05/29/17 15:03) methylparaben Adverse Reaction (Verified 05/29/17 15:03) povidone-iodine [From Betadine] Adverse Reaction (Verified 05/29/17 15:03) Home Medications: Ambulatory Orders Citalopram Hydrobromide [Celexa] 40 mg PO BEDTIME #30 tab-cap 05/19/16 Clonazepam [Klonopin] 1 mg PO BID #60 tab-cap 05/19/16 Pantoprazole Sodium [Protonix] 40 mg PO DAILY #30 tab-cap 05/19/16 Ranitidine HCl [Zantac] 150 mg PO BID #60 tab-cap 05/19/16 Ondansetron HCl [Zofran] 4 mg PO Q6-8H PRN #30 tab-cap 06/02/17 Disposition Discussed With: Patient, Family
[2018-03-21] MEDS ORDERED: GENTAK OPTH SOL OP STA (10:13)
== END 2018-03-21 10:30 | disposition home or self-care (01) ==
LOC: ED 09:36
DX: T15.91XA Foreign body on external eye, part unspecified, right eye, initial encounter (principal); F17.210 Nicotine dependence, cigarettes, uncomplicated
CPT/HCPCS: 99282

== ENCOUNTER 2018-05-10 13:53 | Outpatient (CLI) | END 2018-05-10 13:54 | disposition home or self-care (01) | LOC: LAB 13:53 | PROVIDERS: ATTEND Internal Medicine | DX: E78.5 Hyperlipidemia, unspecified (principal); I10 Essential (primary) hypertension; K21.9 Gastro-esophageal reflux disease without esophagitis; Z79.899 Other long term (current) drug therapy | CPT/HCPCS: 36415; 80053; 80061; 83036; 84443; 85025 ==

== ENCOUNTER 2019-08-25 09:16 | Inpatient (IN) ==
[2019-08-25] MEDS ORDERED: ZOFRAN 4 MG/2 ML IVP STA (09:47)
[2019-08-25] MEDS ORDERED: PROTONIX PO STA (09:47)
[2019-08-25] MEDS ORDERED: SODIUM CHLORIDE 1,000 ML IV STA ×2 (09:47→10:51)
--- NOTE | 2019-08-25 09:53 | ED.PDOC ---
General ED Provider: Dr. HUMBERTO SMITH MD Chief Complaint: Nausea/Vomiting Stated Complaint: mild to mod off and on NVD for 3 weeks, no blood in stool, no injury, diffuse abdominal nonrad cramps Time Seen by Physician: 09:52 Mode of Arrival: Walk-In Information Source: Patient Primary Care Provider: MOUNA MUELLER Nursing and Triage Documentation Reviewed and Agree: Yes Does patient meet sepsis criteria?: No System Inflammatory Response Syndrome: Not Applicable Sepsis Protocol: For patient's 13 years and over: Temp is 96.8 and below OR 101 and greater Pulse >90 BPM Resp >20/minute Acutely Altered Mental Status Are patient's symptoms suggestive of a new infection, such as: -Pneumonia -Skin, Soft Tissue -Endocarditis -UTI -Bone, Joint Infection -Implantable Device -Acute Abdominal Infection -Wound Infection -Meningitis -Blood Stream Catheter Infection -Unknown GI Complaint Exam Abdominal Pain Complaint/Exam Onset: Gradual Duration: 3 weeks Symptoms Are: Still present Timing: Intermittent Initial Severity: Moderate Current Severity: Moderate Location of Pain: Diffuse Review of Systems Review Of Systems Constitutional: Denies Fever Eyes: Denies Vision change Ears, Nose, Mouth, Throat: Denies Throat pain Respiratory: Denies Short of air Cardiac: Denies Chest pain GI: Reports Abdominal pain, Diarrhea and Vomiting Musculoskeletal: Denies Back pain Skin: Denies Rash Neurological: Reports No symptoms All Other Systems: Other [facility] Medical History (Updated 08/25/19 @ 14:39 by HAILEY LYNCH RN) GERD (gastroesophageal reflux disease) (Acute) Hiatal hernia (Acute) Hx of cholecystectomy (Acute) Family History (Updated 08/25/19 @ 14:39 by HAILEY LYNCH RN) Other No known health problems Social History (Updated 08/25/19 @ 14:39 by HAILEY LYNCH RN) Smoking and tobacco status: Current every day smoker Tobacco type: cigarettes History of recent travel: No Physical Exam Physical Exam Appearance: Reports Well-appearing Ill-appearing: None Pain Distress: None Eyes: Reports EOMI ENT: Reports Dry mucosa Respiratory: Reports Airway patent Cardiovascular: Reports RRR GI/: Reports Soft and Tender (no rebound) Musculoskeletal: Reports ROM intact Skin: Reports Warm and Dry Neurological: Reports Sensation intact Psychiatric: Reports Affect appropriate Interpretation Radiology Interpretation Radiology Interpretation By: Radiologist Exam Interpreted: CT Scan Xray Comments: adrenal adenoma, no obstruction Radiology Interpretation By: Radiologist Radiology Results: No acute changes Exam Interpreted: CXR EKG Interpretation Time of EKG #1: 13:22 Rate: Normal Rhythm: Sinus Interpretation: no stemi, prolonged QTc Re-Evaluation Re-Evaluation Time of Re-Evaluation: 13:23 Status: Improved Vital Signs Stable: Yes Appearance: NAD Lungs: Clear Skin: Warm and Dry Neuro: Alert and Oriented X3 CV: RRR Additional Comments: admit d/w Dr Mueller in ED for influenza and dehydration Critical Care Note Critical Care Note Total Time (mins): 0 Course Course Hematology/Chemistry: 08/26/19 04:50 08/26/19 04:50 Orders, Labs, Meds: Lab Review 08/25/19 08/25/19 08/25/19 09:45 10:04 10:04 WBC 11.64 H RBC 5.40 Hgb 17.5 Hct 50.8 MCV 94.1 H MCH 32.4 H MCHC 34.4 RDW Coeff of Dee 14.0 Plt Count 210 Immature Gran % (Auto) 0.5 Neut % (Auto) 76.7 H Lymph % (Auto) 11.2 [place] % (Auto) 10.8 H Eos % (Auto) 0.2 Baso % (Auto) 0.6 Immature Gran # (Auto) 0.1 Neut # (Auto) 8.9 H Lymph # (Auto) 1.3 [place] # (Auto) 1.3 Eos # (Auto) 0.0 Baso # (Auto) 0.1 Puncture Site O2 Saturation ABG pH ABG pCO2 ABG pO2 ABG HCO3 ABG Total CO2 ABG Base Excess Joshua Test FiO2 % Sodium 136.4 Potassium 4.19 Chloride 96.4 L Carbon Dioxide 25.4 Anion Gap 18.79 BUN 12.4 Creatinine 1.10 Estimated GFR (MDRD) 68.00 BUN/Creatinine Ratio 11.27 Glucose 164.1 H Calcium 9.29 Total Bilirubin 0.41 AST 34.6 ALT 27.5 Alkaline Phosphatase 134.9 H Troponin I < 0.012 Total Protein 7.72 Albumin 4.48 Globulin 3.24 Albumin/Globulin Ratio 1.38 Lipase 86.4 Urine Color Urine Clarity Urine pH Ur Specific [place] Urine Protein Urine Glucose (UA) Urine Ketones Urine Blood Urine Nitrite Urine Bilirubin Urine Urobilinogen Ur Leukocyte Esterase Urine Microscopic RBC Urine Microscopic WBC Ur Squamous Epith Cells Hyaline Casts Urine Sperm Influ A Molecular Assay Positive by naat H Influ B Molecular Assay Negative by naat 08/25/19 08/25/19 08/25/19 11:20 12:05 12:30 WBC RBC Hgb Hct MCV MCH MCHC RDW Coeff of Dee Plt Count Immature Gran % (Auto) Neut % (Auto) Lymph % (Auto) [place] % (Auto) Eos % (Auto) Baso % (Auto) Immature Gran # (Auto) Neut # (Auto) Lymph # (Auto) [place] # (Auto) Eos # (Auto) Baso # (Auto) Puncture Site R brach O2 Saturation 94.0 L ABG pH 7.407 ABG pCO2 32.8 L ABG pO2 71.0 L ABG HCO3 20.7 L ABG Total CO2 22 ABG Base Excess -4 L Joshua Test + FiO2 % 21.0 Sodium Potassium Chloride Carbon Dioxide Anion Gap BUN Creatinine Estimated GFR (MDRD) BUN/Creatinine Ratio Glucose Calcium Total Bilirubin AST ALT Alkaline Phosphatase Troponin I < 0.012 Total Protein Albumin Globulin Albumin/Globulin Ratio Lipase Urine Color Yellow Urine Clarity Slightly Urine pH 6.0 Ur Specific [place] 1.020 Urine Protein 1+ H Urine Glucose (UA) Negative Urine Ketones 4+ Urine Blood 1+ H Urine Nitrite Negative Urine Bilirubin 1+ H Urine Urobilinogen 0.2 Ur Leukocyte Esterase Negative Urine Microscopic RBC 0-2 Urine Microscopic WBC 0-2 Ur Squamous Epith Cells Not present Hyaline Casts 0-2 Urine Sperm Trace Influ A Molecular Assay Influ B Molecular Assay Orders Category Date Time Status ABG DRAW REQUEST Stat CARDIO 08/25/19 11:55 Completed EKG-(ED ONLY) Stat CARDIO 08/25/19 09:50 Completed ACTIVITY .BR with BRP CARE 08/25/19 13:26 Active INTAKE & OUTPUT Q8HR CARE 08/25/19 13:26 Completed VITAL SIGNS Q8HR CARE 08/25/19 13:26 Completed REGULAR DIET DIETARY 08/25/19 Dinner Ordered ABG Stat LAB 08/25/19 12:30 Completed BLOOD CULTURE Stat LAB 08/25/19 13:42 Received CBC W/ AUTO DIFF DAILY@0600 LAB 08/26/19 04:50 Completed CBC W/ AUTO DIFF DAILY@0600 LAB 08/27/19 06:00 Ordered CBC W/ AUTO DIFF Stat LAB 08/25/19 10:04 Completed COMPREHENSIVE METABOLIC PANEL DAILY@0600 LAB 08/26/19 04:50 Completed COMPREHENSIVE METABOLIC PANEL DAILY@0600 LAB 08/27/19 06:00 Ordered COMPREHENSIVE METABOLIC PANEL Stat LAB 08/25/19 10:04 Completed FLU A/B MOLECULAR Stat LAB 08/25/19 09:45 Completed LIPASE Stat LAB 08/25/19 10:04 Completed MOLECULAR GROUP A STREP Stat LAB 08/25/19 09:45 Completed TROPONIN I Stat LAB 08/25/19 10:04 Completed TROPONIN I Stat LAB 08/25/19 12:05 Completed URINALYSIS C & S IF INDICATED Stat LAB 08/25/19 11:20 Completed Acetaminophen [Tylenol] MEDS 08/25/19 13:26 Active 650 mg PO Q4H PRN Ceftriaxone/D5w 1 gm Premix [Rocephin 1 gm/50 ml D5w] MEDS 08/25/19 13:21 Discontinued 1 gm in 50 ml IV ONCE Ondansetron HCl/Pf [Zofran 4 mg/2 ml] MEDS 08/25/19 09:47 Discontinued 4 mg IVP ONCE STA Oseltamivir Phosphate [Tamiflu] MEDS 08/25/19 13:26 Discontinued 75 mg PO ONCE ONE Pantoprazole Sodium [Protonix] MEDS 08/25/19 09:47 Discontinued 40 mg PO ONCE STA Ringers Lactated Solution [Lactated Ringers] 1,000 ml MEDS 08/25/19 12:09 Discontinued IV BOLUS Sodium Chloride 0.9% [Sodium Chloride] 1,000 ml MEDS 08/25/19 13:30 Active IV 75 mls/hr Sodium Chloride 0.9% [Sodium Chloride] 1,000 ml MEDS 08/25/19 09:47 Discontinued IV BOLUS Sodium Chloride 0.9% [Sodium Chloride] 1,000 ml MEDS 08/25/19 10:51 Discontinued IV BOLUS RESUSCITATION STATUS Routine OTHERS 08/25/19 13:26 Ordered CHEST, 1V AP ONLY Stat RADS 08/25/19 11:[address] ABDOMEN/PELVIS WO CONTRAST Stat RADS 08/25/19 09:47 Completed Medications Generic Name Dose Route Start Last Admin Trade Name Freq PRN Reason Stop Dose Admin Acetaminophen 650 mg 08/25/19 13:26 Tylenol PO Q4H PRN Mild Pain Citalopram Hydrobromide 40 mg 08/25/19 21:00 08/25/19 20:34 Celexa PO 40 mg BEDTIME JAYASHREE Administration Clonazepam 1 mg 08/25/19 21:00 08/25/19 20:34 Klonopin PO 1 mg BID JAYASHREE Administration Esomeprazole Magnesium 40 mg 08/25/19 15:30 08/25/19 15:57 Nexium Iv IVP 40 mg DAILY JAYASHREE Administration Hydrocortisone Sodium Succinate 125 mg 08/25/19 15:30 08/26/19 05:13 Solu-Cortef 250 Mg IVP 125 mg Q6HR JAYASHERE Administration Sodium Chloride 1,000 mls @ 75 mls/hr 08/25/19 13:30 08/26/19 03:31 Sodium Chloride IV 75 mls/hr .[id number] JAYASHREE Administration Losartan Potassium 100 mg 08/25/19 15:30 08/25/19 15:57 Cozaar PO 100 mg DAILY JAYASHREE Administration Ondansetron HCl 4 mg 08/25/19 15:21 08/26/19 05:17 Zofran 4 Mg/2 Ml IVP 4 mg Q6H PRN Administration Nausea / Vomiting Oseltamivir Phosphate 75 mg 08/25/19 21:00 08/25/19 20:34 Tamiflu PO 75 mg Q12HR JAYASHREE Administration Discontinued Medications Generic Name Dose Route Start Last Admin Trade Name Freq PRN Reason Stop Dose Admin Sodium Chloride 1,000 mls @ 1,000 mls/hr 08/25/19 09:47 08/25/19 09:57 Sodium Chloride IV 08/25/19 10:46 1,000 mls/hr BOLUS STA Administration Sodium Chloride 1,000 mls @ 1,000 mls/hr 08/25/19 10:51 08/25/19 11:01 Sodium Chloride IV 08/25/19 11:50 1,000 mls/hr BOLUS STA Administration Lactated Ringer's 1,000 mls @ 1,000 mls/hr 08/25/19 12:09 08/25/19 12:20 Lactated Ringers IV 08/25/19 13:08 200 mls/hr BOLUS STA Administration CEFTRIAXONE/D5W 1 GM PREMIX 1 gm in 50 mls @ 75 mls/hr 08/25/19 13:21 08/25/19 13:43 Rocephin 1 Gm/50 Ml D5w IV 08/25/19 14:00 75 mls/hr ONCE STA Administration Ondansetron HCl 4 mg 08/25/19 09:47 08/25/19 10:00 Zofran 4 Mg/2 Ml IVP 08/25/19 09:48 4 mg ONCE STA Administration Oseltamivir Phosphate 75 mg 08/25/19 13:26 08/25/19 14:48 Tamiflu PO 08/25/19 13:27 75 mg ONCE ONE Administration Pantoprazole Sodium 40 mg 08/25/19 09:47 08/25/19 13:46 Protonix PO 08/25/19 09:48 Not Given ONCE STA Vital Signs: Temp Pulse Resp BP Pulse Ox 08/25/19 12:14 96.6 F L 08/25/19 09:16 100.2 F H 118 H 22 0/0 L 98 Discharge Plan Discharge Patient Disposition: PLACED OBSERVATION Discharge Problem: Vomiting, Influenza A, Acute dehydration ED Provider: HUMBERTO SMITH Condition: Stable Discharge Date/Time: 08/25/19 14:27
[2019-08-25 10:07] LABS: HEMATOCRIT 50.8 % (42.0-52.0)
--- NOTE | 2019-08-25 10:58 | CT ---
EXAM: CT abdomen pelvis without contrast HISTORY: Vomiting COMPARISON: 12/31/2017 TECHNIQUE: CT abdomen pelvis performed without intravenous contrast. Coronal and sagittal reformatt ed images obtained. FINDINGS: Mild bibasilar atelectasis, left greater than right. No free air. No acute abnormalities of the bones. Degenerative change in the spine. Heart top normal in size. Evaluation organ parenc hyma limited without contrast. Liver diffusely decreased in attenuation. Patient status post cholec ystectomy. Pancreas unremarkable. Spleen unremarkable. Stable 2.1 cm nodule left adrenal gland isidoro suring negative 18 HU, consistent with adenoma. 3.7 x 3.3 cm. The right renal nodule measures 0 HU, also grossly unchanged. Nonspecific bilateral perinephric stranding. The 3 mm nonobstructing left renal calculus. No hydronephrosis. No calculi visualized in the normal course of the ureters. Blad davonte only minimally stented and poorly evaluated, grossly unremarkable. Surgical clips right inguinal region. Prostate normal in size. Aorta normal in caliber. Mild to moderate atherosclerosis. No l ymphadenopathy in the or ascites. Small hiatal hernia. No dilated loops small bowel. Appendix appe ars normal. Colonic diverticulosis. The IMPRESSION: 1. No bowel or urinary obstruction. Normal appendix. 2. Hepatic steatosis. 3. Colonic diverticulosis. 4. Left nephrolithiasis. No hydronephrosis. 5. Nonspecific bilateral perinephric stranding. 6. Bilateral adrenal adenomas, measuring up to 3.7 cm on the right and 2.1 cm on the left. 7. Small hiatal hernia. 8. Atherosclerosis
[2019-08-25] MEDS ORDERED: LACTATED RINGERS 1,000 ML IV STA (12:09)
--- NOTE | 2019-08-25 12:15 | DI ---
EXAM: Frontal chest HISTORY: Cough. FINDINGS: Compared to 12/31/2017. Heart size is within normal limits. There is early ectasia of th e thoracic aorta. No acute infiltrates are seen. No vascular congestion. There is no consolidation , visible pleural fluid or pneumothorax. Bones reveal no acute fracture. IMPRESSION: No acute cardiopulmonary process.
[2019-08-25] MEDS ORDERED: ROCEPHIN 1 GM/50 ML D5W 1 GM/50 ML BAG IV STA (13:21)
[2019-08-25] MEDS ORDERED: TAMIFLU PO ONE (13:26)
[2019-08-25 14:45] VITALS: BMI 26.4
[2019-08-25] MEDS: SODIUM CHLORIDE 1,000 ML IV SCH (14:48)
[2019-08-25] MEDS: NEXIUM IV IVP SCH (15:57)
[2019-08-25] MEDS: COZAAR PO SCH (15:57)
[2019-08-25] MEDS: ZOFRAN 4 MG/2 ML IVP PRN (15:57)
[2019-08-25] MEDS: SOLU-CORTEF 250 MG IVP SCH ×2 (15:58→17:54)
[2019-08-25] MEDS: TAMIFLU PO SCH (20:34)
[2019-08-25] MEDS: CELEXA PO SCH (20:34)
[2019-08-25] MEDS ORDERED: KLONOPIN PO SCH (21:00)
[2019-08-26] MEDS: SOLU-CORTEF 250 MG IVP SCH ×3 (00:38→20:53)
[2019-08-26] MEDS: SODIUM CHLORIDE 1,000 ML IV SCH ×2 (03:31→17:40)
[2019-08-26 05:08] LABS: HEMATOCRIT 43.4 % (42.0-52.0)
[2019-08-26] MEDS: ZOFRAN 4 MG/2 ML IVP PRN (05:17)
[2019-08-26] MEDS ORDERED: SOLU-CORTEF 250 MG IVP SCH (09:00)
[2019-08-26] MEDS ORDERED: ROCEPHIN 1 GM/50 ML D5W 1 GM/50 ML BAG IV SCH (09:00)
[2019-08-26] MEDS: ROCEPHIN 1 GM/50 ML D5W 1 GM/50 ML BAG IV SCH (09:06)
[2019-08-26] MEDS: KLONOPIN PO SCH ×2 (09:06→20:52)
[2019-08-26] MEDS: NORVASC PO SCH (09:06)
[2019-08-26] MEDS: COZAAR PO SCH (09:06)
[2019-08-26] MEDS: TAMIFLU PO SCH ×2 (09:06→20:53)
--- NOTE | 2019-08-26 09:40 | HP ---
DATE OF SERVICE: 08/25/19 REASON FOR HOSPITALIZATION: Flu type symptoms. HISTORY OF PRESENT ILLNESS: This 59 year old /WHITE M was hospitalized 08/25/19 with flu-type symptoms, duration 2 to 3 days for sure but has been having problem with diarrhea the past two to three weeks. He has been vomiting off and on for 2 to 3 weeks with mild cough and congestion, running high fever at home. Joon patient has not eaten anything for three weeks. PAST MEDICAL HISTORY: Depression Reflux disease PAST SURGICAL HISTORY: Hernia repair times two Cholecystectomy REVIEW OF SYSTEMS: CONSTITUTIONAL: Weakness and fatigue. No night sweats. No malaise, lethargy. No fever or chills. HEENT: Eyes: No visual changes. No eye pain. No eye discharge. ENT: No r unny nose. No epistaxis. No sinus pain. No sore throat. No odynophagia. No ear pain. No congestion. RESPIRATORY: Cough, congestion. No hemoptysis. No shortness of breath. CARDIOVASCULAR: No angina symptoms. No CHF symptoms. No atypical chest pain for CAD. No palpitations. No PND. No orthopnea. GASTROINTESTINAL: Positive for nausea and vomiting. Positive for diarrhea off and on. Poor appetite, not eaten for three days. No abdominal pain. No hematemesis. No hematochezia. GENITOURINARY: No urgency. No frequency. No dysuria. No hematuria. No obstructive symptoms. No discharge. No pain. No significant abnormal bleeding. MUSCULOSKELETAL: No musculoskeletal pain. No joint swelling. No arthritis. NEUROLOGICAL: Positive for dizziness. No headache. No neck pain. No syncope. No seizures. PSYCHIATRIC: Not anxious. No depression. No suicidal thoughts. No homicidal thoughts. SKIN: No rash. No lesions. No wounds. ENDOCRINE: No unexplained weight loss. No weight gain. HEMATOLOGIC/LYMPHATIC: No anemia. No purpura. No petechiae. No prolonged or excessive bleeding. No palpable lymph nodes. PERSONAL/FAMILY/SOCIAL HISTORY: , lives with . Nonsmoker. No alcohol use. MEDICATIONS: (HOME) Citalopram 40 mg p.o. bedtime Pantoprazole 40 mg p.o. daily Clonazepam 1 mg p.o. b.i.d. Famotidine 20 mg p.o. b.i.d. ALLERGIES: IODINE, METHYLPARABEN, POVIDONE IODINE PHYSICAL EXAMINATION: GENERAL: The patient is oriented times three, sleepy, lying in bed in no distress. VITAL SIGNS: Temperature 100.2, pulse 118, respiratory rate 22, BP 160/102. O xygen saturation 98% on room air. HEENT: Head normocephalic, atraumatic. Eyes: Extraocular muscles are intact. Pupils are equal, round and reactive to light and accommodation. Ears: No lesions. Nose appeared normal. Throat: No exudate or erythema. Mucous membranes dry. NECK: Supple. No JVD, no carotid bruit. No lymphadenopathy or thyromegaly. LUNGS: Decreased breath sounds with mild wheeze. Good air entry. Percussion note normal. Chest symmetrical. HEART: S1, S2, no S3. No murmur. No cyanosis or clubbing. No ascites. Pulses: Dorsalis pedis and posterior tibial pulses +1 to +2 bilaterally. ABDOMEN: Soft. Nontender. Bowel sounds active. No CVA tenderness. No mass felt. EXTREMITIES: No edema. Full range of motion of all extremities, equal. NEUROLOGIC: No focal deficit. Cranial nerves II through XII are grossly intact. No headache, no double vision or headache. SKIN: Dry. Intact. Turgor - normal. LYMPHATIC: No palpable lymph nodes/no lymphedema. MUSCULOSKELETAL: Normal joints with no swelling. Muscle tone is normal. LAB REVIEW: 08/26/19 04:50 08/26/19 04:50 08/26/19 04:50: Sodium 135.2, Potassium 3.80, Chloride 103.7, Carbon Dioxide 2 2.5, Anion Gap 12.80, BUN 12.0, Creatinine 0.65, Estimated GFR (MDRD) 125.00, BUN/Creatinine Ratio 18.46, Glucose 100.3 D, Calcium 8.37 L, Total Bilirubin 0.22, AST 25.7, ALT 21.6, Alkaline Phosphatase 89.0 D, Total Protein 6.36, Albumin 3.66, Globulin 2.70, Albumin/Globulin Ratio 1.35 08/26/19 04:50: WBC 8.96, RBC 4.70, Hgb 15.1, Hct 43.4 D, MCV 92.3, MCH 32.1 H, MCHC 34.8, RDW Coeff of Dee 13.6, Plt Count 197, Immature Gran % (Auto) 0.4, Neut % (Auto) 84.7 H, Lymph % (Auto) 8.4 L, [place] % (Auto) 6.4, Eos % (Auto) 0.0, Baso % (Auto) 0.1, Immature Gran # (Auto) 0.0, Neut # (Auto) 7.6 H, Lymph # (Auto) 0.8, [place] # (Auto) 0.6, Eos # (Auto) 0.0, Baso # (Auto) 0.0 08/25/19 12:30: Puncture Site R brach, O2 Saturation 94.0 L, ABG pH 7.407, ABG pCO2 32.8 L, ABG pO2 71.0 L, ABG HCO3 20.7 L, ABG Total CO2 22, ABG Base Excess -4 L, Joshua Test +, FiO2 % 21.0 08/25/19 12:05: Troponin I < 0.012 08/25/19 11:20: Urine Color Yellow, Urine Clarity Slightly, Urine pH 6.0, Ur S pecific [place] 1.020, Urine Protein 1+ H, Urine Glucose (UA) Negative, Urine Ketones 4+, Urine Blood 1+ H, Urine Nitrite Negative, Urine Bilirubin 1+ H, Urine Urobilinogen 0.2, Ur Leukocyte Esterase Negative, Urine Microscopic RBC 0- 2, Urine Microscopic WBC 0-2, Ur Squamous Epith Cells Not present, Hyaline Casts 0-2, Urine Sperm Trace 08/25/19 10:04: Sodium 136.4, Potassium 4.19, Chloride 96.4 L, Carbon Dioxide 25.4, Anion Gap 18.79, BUN 12.4, Creatinine 1.10, Estimated GFR (MDRD) 68.00, BUN/Creatinine Ratio 11.27, Glucose 164.1 H, Calcium 9.29, Total Bilirubin 0.41, AST 34.6, ALT 27.5, Alkaline Phosphatase 134.9 H, Troponin I < 0.012, Total Protein 7.72, Albumin 4.48, Globulin 3.24, Albumin/Globulin Ratio 1.38, Lipase 86.4 08/25/19 10:04: WBC 11.64 H, RBC 5.40, Hgb 17.5, Hct 50.8, MCV 94.1 H, MCH 32.4 H, MCHC 34.4, RDW Coeff of Dee 14.0, Plt Count 210, Immature Gran % (Auto) 0.5, Neut % (Auto) 76.7 H, Lymph % (Auto) 11.2, [place] % (Auto) 10.8 H, Eos % (Auto) 0.2, Baso % (Auto) 0.6, Immature Gran # (Auto) 0.1, Neut # (Auto) 8.9 H, Lymph # (Auto) 1.3, [place] # (Auto) 1.3, Eos # (Auto) 0.0, Baso # (Auto) 0.1 08/25/19 09:45: Influ A Molecular Assay Positive by naat H, Influ B Molecular Assay Negative by naat IMAGING: Chest x-ray 08/25/19 Impression: No acute cardiopulmonary process. CT scan of abdomen and pelvis without intravenous contrast: No bowel or urinary obstruction. Normal appendix. Hepatic steatosis. Colonic diverticulosis. Left nephrolithiasis. No hydronephrosis. Nonspecific bilateral perinephric stranding. Bilateral adrenal adenomas measuring up to 3.7 cm on the right and 2.1 cm on the left. Small hiatal hernia. Atherosclerosis. The patient's UA showed 1+ protein, 4+ ketones, 1+ blood, 1+ urobilinogen, all indicating that the patient was severely dehydrated. ASSESSMENT: 1. INFLUENZA A POSITIVE 2. ACUTE GASTROENTERITIS 3. ACUTE BRONCHITIS 4. THE PATIENT'S UA SHOWED 1+ PROTEIN, 4+ KETONES, 1+ BLOOD, 1+ UROBILINOGEN, ALL INDICATING THAT THE PATIENT WAS SEVERELY DEHYDRATED. 5. DEPRESSION WITH ANXIETY DISORDER 6. HEPATIC STEATOSIS 7. COLONIC DIVERTICULOSIS 8. LEFT NEPHROLITHIASIS 9. BILATERAL ADRENAL ADENOMAS 10. SMALL HIATAL HERNIA 11. GENERALIZED ATHEROSCLEROSIS PLAN: 1. Give IV fluids, antibiotics. 2. Symptomatic treatment for diarrhea with Zofran, steroids and Tamiflu. 3. Telemetry. 4. Daily CBC and CMP. CONDITION: Stable. TIME SPENT: More than 70 minutes. SCRIBED BY: SANDOVAL MANDEL, [employer] Operator scribed while in presence of service performed by Dr. MOUNA MUELLER on 08/26/19 ([id number]) [facility]
--- NOTE | 2019-08-26 09:41 | PCM.PROG ---
Attending Provider: ATTENDING PROVIDER: Dr. MOUNA MUELLER DATE OF SERVICE: 08/26/19 SUBJECTIVE: This 59 year old /WHITE M was hospitalized 08/25/19 hospitalized with influenza A, dehydration. The patient had acute gastroenteritis type of symptoms that have resolved. No diarrhea or vomiting noted. He ate 50% of his supper yesterday. This morning he is awake, alert, not drowsy as yesterday, sti ll with mild cough. REVIEW OF SYSTEMS: CONSTITUTIONAL: No night sweats. No fatigue, malaise, lethargy. No fever or chills. HEENT: Eyes: No visual changes. No eye pain. No eye discharge. ENT: No runny nose. No epistaxis. No sinus pain. No odynophagia. No congestion. RESPIRATORY: Cough and congestion. No hemoptysis. No shortness of breath. CARDIOVASCULAR: No angina symptoms. No CHF symptoms. No atypical chest pain for CAD. No palpitations. No orthopnea. GASTROINTESTINAL: Appetite is better. No diarrhea. No vomiting. No abdominal pain. No hematemesis. No hematochezia. GENITOURINARY: No urgency. No frequency. No dysuria. No hematuria. No obstructive symptoms. No discharge. No pain. No significant abnormal bleeding. MUSCULOSKELETAL: No musculoskeletal pain; no joint swelling. PLATEN PRESS FEEDER: Sleepy, positive for dizziness. Awake, oriented to time, place and person. No headache. No neck pain. No syncope. No seizures. PSYCHIATRIC: Not anxious. No depression. No suicidal thoughts. No homicidal thoughts. SKIN: No rash. No lesions. No wounds. ENDOCRINE: No unexplained weight loss. No weight gain. HEMATOLOGIC/LYMPHATIC: No anemia. No purpura. No petechiae. No prolonged or excessive bleeding. No palpable lymph nodes. PHYSICAL EXAMINATION: GENERAL: The patient is awake, alert and oriented ,lying/sitting in bed in no distress. VITAL SIGNS: Temperature 98.1 F, Pulse 65, Respiratory Rate 20, BP 160/110, Pulse Ox 96% HEENT: Head normocephalic, atraumatic. Eyes: Extraocular muscles are intact. Pupils are equal, round and reactive to light and accommodation. Ears: No lesions. Nose appeared normal. Throat: No exudate or erythema. NECK: Supple. No JVD, no carotid bruit. No lymphadenopathy or thyromegaly. LUNGS: Decreased breath sounds. Clear to auscultation. Percussion note normal. Chest symmetrical. HEART: S1, S2, no S3. No murmurs. No cyanosis or clubbing. No ascites. Pulses: Dorsalis pedis and posterior tibial pulses +1 to +2 both sides. ABDOMEN: Soft. Non-tender. Bowel sounds active. No CVA tenderness. No mass felt. EXTREMITIES: No edema. Full range of motion of all extremities, equal. NEUROLOGIC: Positive for dizziness. No focal deficit. Cranial nerves II through XII are grossly intact. No headache, no double vision or headache. SKIN: Warm and dry. Intact. Turgor-normal. LYMPHATIC: No palpable lymph nodes/no lymphedema. MUSCULOSKELETAL: Normal joints with no swelling. Muscle tone is normal. LAB REVIEW: 08/26/19 04:50 08/26/19 04:50 08/26/19 04:50: Sodium 135.2, Potassium 3.80, Chloride 103.7, Carbon Dioxide 22.5, Anion Gap 12.80, BUN 12.0, Creatinine 0.65, Estimated GFR (MDRD) 125.00, BUN/Creatinine Ratio 18.46, Glucose 100.3 D, Calcium 8.37 L, Total Bilirubin 0.22, AST 25.7, ALT 21.6, Alkaline Phosphatase 89.0 D, Total Protein 6.36, Albumin 3.66, Globulin 2.70, Albumin/Globulin Ratio 1.35 08/26/19 04:50: WBC 8.96, RBC 4.70, Hgb 15.1, Hct 43.4 D, MCV 92.3, MCH 32.1 H, MCHC 34.8, RDW Coeff of Dee 13.6, Plt Count 197, Immature Gran % (Auto) 0.4, Neut % (Auto) 84.7 H, Lymph % (Auto) 8.4 L, [place] % (Auto) 6.4, Eos % (Auto) 0.0, Baso % (Auto) 0.1, Immature Gran # (Auto) 0.0, Neut # (Auto) 7.6 H, Lymph # (Auto) 0.8, [place] # (Auto) 0.6, Eos # (Auto) 0.0, Baso # (Auto) 0.0 08/25/19 12:30: Puncture Site R brach, O2 Saturation 94.0 L, ABG pH 7.407, ABG pCO2 32.8 L, ABG pO2 71.0 L, ABG HCO3 20.7 L, ABG Total CO2 22, ABG Base Excess -4 L, Joshua Test +, FiO2 % 21.0 08/25/19 12:05: Troponin I < 0.012 08/25/19 11:20: Urine Color Yellow, Urine Clarity Slightly, Urine pH 6.0, Ur Specific [place] 1.020, Urine Protein 1+ H, Urine Glucose (UA) Negative, Urine Ketones 4+, Urine Blood 1+ H, Urine Nitrite Negative, Urine Bilirubin 1+ H, Urine Urobilinogen 0.2, Ur Leukocyte Esterase Negative, Urine Microscopic RBC 0- 2, Urine Microscopic WBC 0-2, Ur Squamous Epith Cells Not present, Hyaline Casts 0-2, Urine Sperm Trace 08/25/19 10:04: Sodium 136.4, Potassium 4.19, Chloride 96.4 L, Carbon Dioxide 25.4, Anion Gap 18.79, BUN 12.4, Creatinine 1.10, Estimated GFR (MDRD) 68.00, BUN/Creatinine Ratio 11.27, Glucose 164.1 H, Calcium 9.29, Total Bilirubin 0.41, AST 34.6, ALT 27.5, Alkaline Phosphatase 134.9 H, Troponin I < 0.012, Total Protein 7.72, Albumin 4.48, Globulin 3.24, Albumin/Globulin Ratio 1.38, Lipase 86.4 08/25/19 10:04: WBC 11.64 H, RBC 5.40, Hgb 17.5, Hct 50.8, MCV 94.1 H, MCH 32.4 H, MCHC 34.4, RDW Coeff of Dee 14.0, Plt Count 210, Immature Gran % (Auto) 0.5, Neut % (Auto) 76.7 H, Lymph % (Auto) 11.2, [place] % (Auto) 10.8 H, Eos % (Auto) 0.2, Baso % (Auto) 0.6, Immature Gran # (Auto) 0.1, Neut # (Auto) 8.9 H, Lymph # (Auto) 1.3, [place] # (Auto) 1.3, Eos # (Auto) 0.0, Baso # (Auto) 0.1 08/25/19 09:45: Influ A Molecular Assay Positive by naat H, Influ B Molecular Assay Negative by naat ASSESSMENT: Please see below. 1. Influenza A positive. 2. Acute bronchitis and gastroenteritis seems to have resolved. 3. Dehydration, resolved with good skin turgor. 4. Hypertension is the other problem. Yesterday started on Cozaar because of that; still persists. Will add Norvasc and continue Cozaar. 5. Depression with anxiety disorder. PLAN: 1. Losartan 100 mg. 2. Norvasc 5 mg daily, one now. 3. Rocephin 1 gm q.24hr. 4. Change Solu-Cortef 125 mg to q.12hr. 5. Monitor blood pressure. 6. Continue Cozaar at 10 mg daily. Plan and coordination of the patient's care discussed in the presence of Supervisor Shipfitters and nurse. CONDITION: Stable SCRIBED BY: SANDOVAL MANDEL Prisoner Classification Interviewer scribed while in presence of service performed by Dr. MOUNA MUELLER on 08/26/19 ([id number])
[2019-08-26] MEDS: NEXIUM IV IVP SCH (10:07)
--- NOTE | 2019-08-26 11:17 | PN ---
DATE OF SERVICE: 08/25/2019 SUBJECTIVE: The patient was seen and examined. The patient was brought to the emergency room with nausea and vomiting, abdominal cramp and also cough and congestion. Duration of symptoms 3-4 days but actually sick for more than 3 weeks. Hasn't eaten anything practically for past two days according to the who was present in the room. The patient is positive for Influenza. REVIEW OF SYSTEMS: CONSTITUTIONAL: No night sweats. No fatigue, malaise, lethargy. No fever or chills. HEENT: Eyes: No visual changes. No eye pain. No eye discharge. ENT: No runny nose. No epistaxis. No sinus pain. No sore throat. No odynophagia. No congestion. RESPIRATORY: No cough, no congestion. No hemoptysis. No shortness of breath. CARDIOVASCULAR: No angina symptoms. No CHF symptoms. No atypical chest pain for CAD. No palpitations. No PND. No orthopnea. GASTROINTESTINAL: No abdominal pain. No nausea or vomiting. No diarrhea or constipation. No hematemesis. No hematochezia. GENITOURINARY: No urgency. No frequency. No dysuria. No hematuria. No obstructive symptoms. No discharge. No pain. No significant abnormal bleeding. MUSCULOSKELETAL: No musculoskeletal pain; no joint swelling. NEUROLOGICAL: No headache. No neck pain. No syncope. No seizures. No dizziness. PSYCHIATRIC: Not anxious. No depression. No suicidal thoughts. No homicidal thoughts. SKIN: No rash. No lesions. No wounds. ENDOCRINE: No unexplained weight loss. No weight gain. HEMATOLOGIC/LYMPHATIC: No anemia. No purpura. No petechiae. No prolonged or excessive bleeding. No palpable lymph nodes. PHYSICAL EXAMINATION: VITAL SIGNS: Temperature 100.2, pulse 110, respiratory rate 22, blood pressure 110/70. HEENT: Head normocephalic, atraumatic. Eyes: Extraocular muscles are intact. Pupils are equal, round and reactive to light and accommodation. Ears: No lesions. Nose appeared normal. Throat: No exudate or erythema. NECK: Supple. No JVD, no carotid bruit. No lymphadenopathy or thyromegaly. LUNGS: Decreased breath sounds but clear to auscultation. Percussion note normal. Chest symmetrical. HEART: S1, S2, no S3. No murmurs. No cyanosis or clubbing. No ascites. Pulses: Dorsalis pedis and posterior tibial pulses +1 to +2 bilaterally. ABDOMEN: Soft. Nontender. Bowel sounds active. No CVA tenderness. No mass felt. EXTREMITIES: No edema. Full range of motion of all extremities, equal. NEUROLOGIC: No focal deficit. Cranial nerves II through XII are grossly intact. No headache, no double vision or headache. SKIN: Dry. Intact. Turgor - normal. Mucous membrane dry. LYMPHATIC: No palpable lymph nodes/no lymphedema. MUSCULOSKELETAL: Normal joints with no swelling. Muscle tone is normal. LABS: Creatinine 1.1, BUN 12, hgb 17, hct 50, WBC 11,000 with mild shift to the left. ABG pH 7.40 with pO2 71, pCO2 32 with oxygen saturation 94% on room air. ASSESSMENT: 1. Influenza A with acute gastroenteritis 2. Acute bronchitis PLAN: 1. Advised to given IV fluids 2. Steroids 3. Antibiotics 4. Symptomatic treatment for nausea and vomiting. TIME SPENT: More than 30 minutes. Plan and coordination of the patient's care discussed in the presence of nurse. ADELA
[2019-08-26] MEDS: TYLENOL PO PRN (17:35)
[2019-08-26] MEDS: VASOTEC IV IVP PRN (18:08)
[2019-08-26] MEDS: CELEXA PO SCH (20:52)
[2019-08-27 05:07] LABS: HEMATOCRIT 43.8 % (42.0-52.0)
[2019-08-27] MEDS: TYLENOL PO PRN ×2 (05:46→16:25)
[2019-08-27] MEDS: SODIUM CHLORIDE 1,000 ML IV SCH ×2 (06:32→20:34)
[2019-08-27] MEDS: NEXIUM IV IVP SCH (08:42)
[2019-08-27] MEDS: KLONOPIN PO SCH ×2 (08:43→20:08)
[2019-08-27] MEDS: NORVASC PO SCH ×2 (08:43→20:08)
[2019-08-27] MEDS: ROCEPHIN 1 GM/50 ML D5W 1 GM/50 ML BAG IV SCH (08:43)
[2019-08-27] MEDS: COZAAR PO SCH (08:43)
[2019-08-27] MEDS: TAMIFLU PO SCH ×2 (08:43→20:08)
[2019-08-27] MEDS: SOLU-CORTEF 250 MG IVP SCH ×2 (08:44→20:33)
[2019-08-27] MEDS: K-DUR PO SCH ×2 (13:48→16:29)
[2019-08-27] MEDS: CELEXA PO SCH (20:08)
[2019-08-28 05:11] LABS: HEMATOCRIT 46.3 % (42.0-52.0)
[2019-08-28] MEDS: TYLENOL PO PRN (05:44)
[2019-08-28] MEDS: VASOTEC IV IVP PRN (07:59)
[2019-08-28] MEDS: SOLU-CORTEF 250 MG IVP SCH ×2 (08:00→21:23)
[2019-08-28] MEDS: NEXIUM IV IVP SCH (08:00)
[2019-08-28] MEDS: KLONOPIN PO SCH ×2 (09:06→21:04)
[2019-08-28] MEDS: COZAAR PO SCH (09:06)
[2019-08-28] MEDS: TAMIFLU PO SCH ×2 (09:06→21:05)
[2019-08-28] MEDS: K-DUR PO SCH ×4 (09:06→21:04)
[2019-08-28] MEDS: NORVASC PO SCH ×2 (09:06→21:05)
[2019-08-28] MEDS: ROCEPHIN 1 GM/50 ML D5W 1 GM/50 ML BAG IV SCH (09:07)
[2019-08-28] MEDS: SODIUM CHLORIDE 1,000 ML IV SCH (09:07)
[2019-08-28] MEDS ORDERED: COREG PO SCH (11:30)
[2019-08-28] MEDS: COREG PO SCH (12:04)
[2019-08-28] MEDS: CELEXA PO SCH (21:04)
[2019-08-29 05:49] LABS: HEMATOCRIT 46.4 % (42.0-52.0)
[2019-08-29] MEDS ORDERED: COREG PO SCH (08:00)
[2019-08-29] MEDS: NORVASC PO SCH (08:37)
[2019-08-29] MEDS: TAMIFLU PO SCH (08:38)
[2019-08-29] MEDS: COZAAR PO SCH (08:38)
[2019-08-29] MEDS: COREG PO SCH (08:38)
[2019-08-29] MEDS: KLONOPIN PO SCH (08:39)
[2019-08-29] MEDS: K-DUR PO SCH ×2 (08:43→13:21)
--- NOTE | 2019-08-29 08:51 | PCM.PROG ---
Attending Provider: ATTENDING PROVIDER: Dr. MOUNA MUELLER DATE OF SERVICE: 08/29/19 SUBJECTIVE: This 59 year old /WHITE M was hospitalized 08/25/19 with Influenza A, dehydration and gastroenteritis. The patient was severely dehydrated and was unable to walk and was fatigued and tired. The patient's condition improved with steady IV fluids, IV antibiotics, steroids and NEBS. REVIEW OF SYSTEMS: CONSTITUTIONAL: No night sweats. No fatigue, malaise, lethargy. No fever or chills. HEENT: Eyes: No visual changes. No eye pain. No eye discharge. ENT: No runny nose. No epistaxis. No sinus pain. No odynophagia. No congestion. RESPIRATORY: No cough, no congestion. No hemoptysis. No shortness of breath. CARDIOVASCULAR: No angina symptoms. No CHF symptoms. No atypical chest pain for CAD. No palpitations. No orthopnea.. GASTROINTESTINAL: No abdominal pain. No nausea or vomiting. No diarrhea or constipation. No hematemesis. No hematochezia. GENITOURINARY: No urgency. No frequency. No dysuria. No hematuria. No obstructive symptoms. No discharge. No pain. No significant abnormal bleeding. MUSCULOSKELETAL: No musculoskeletal pain; no joint swelling. NEUROLOGICAL: Awake, alert, oriented to time, place and person. No headache. No neck pain. No syncope. No seizures. No dizziness. PSYCHIATRIC: Not anxious. No depression. No suicidal thoughts. No homicidal thoughts. SKIN: No rash. No lesions. No wounds. ENDOCRINE: No unexplained weight loss. No weight gain. HEMATOLOGIC/LYMPHATIC: No anemia. No purpura. No petechiae. No prolonged or excessive bleeding. No palpable lymph nodes. PHYSICAL EXAMINATION: GENERAL: The patient is awake, alert and oriented, lying in bed in no distress. VITAL SIGNS: Temperature 97.7 F, Pulse 83, Respiratory Rate 18, BP 136/88, Pulse Ox 95% HEENT: Head normocephalic, atraumatic. Eyes: Extraocular muscles are intact. Pupils are equal, round and reactive to light and accommodation. Ears: No lesions. Nose appeared normal. Throat: No exudate or erythema. NECK: Supple. No JVD, no carotid bruit. No lymphadenopathy or thyromegaly. LUNGS: Clear to auscultation. Percussion note normal. Chest symmetrical. HEART: S1, S2, no S3. No murmurs. No cyanosis or clubbing. No ascites. Pulses: Dorsalis pedis and posterior tibial pulses +1 to +2 both sides. ABDOMEN: Soft. Non-tender. Bowel sounds active. No CVA tenderness. No mass felt. EXTREMITIES: No edema. Full range of motion of all extremities, equal. NEUROLOGIC: No focal deficit. Cranial nerves II through XII are grossly intact. No headache, no double vision or headache. SKIN: Warm and dry. Intact. Turgor-normal. LYMPHATIC: No palpable lymph nodes/no lymphedema. MUSCULOSKELETAL: Normal joints with no swelling. Muscle tone is normal. LAB REVIEW: 08/29/19 05:27 08/29/19 05:27 08/29/19 05:27: Sodium 138.0, Potassium 3.51, Chloride 99.6, Carbon Dioxide 28.0, Anion Gap 13.91, BUN 12.9, Creatinine 0.50 L, Estimated GFR (MDRD) 170.00, BUN/Creatinine Ratio 25.80, Glucose 104.0, Calcium 8.58, Total Bilirubin 0.32, AST 24.7, ALT 22.8, Alkaline Phosphatase 80.1, Total Protein 6.31, Albumin 3.79, Globulin 2.52, Albumin/Globulin Ratio 1.50 08/29/19 05:27: WBC 4.16 L, RBC 5.07, Hgb 16.4, Hct 46.4, MCV 91.5, MCH 32.3 H, MCHC 35.3, RDW Coeff of Dee 13.6, Plt Count 162, Immature Gran % (Auto) 0.2, Neut % (Auto) 56.7, Lymph % (Auto) 31.3, [place] % (Auto) 11.8 H, Eos % (Auto) 0.0, Baso % (Auto) 0.0, Immature Gran # (Auto) 0.0, Neut # (Auto) 2.4, Lymph # (Auto) 1.3, [place] # (Auto) 0.5, Eos # (Auto) 0.0, Baso # (Auto) 0.0 ASSESSMENT: Please see below. 1. Influenza A with gastroenteritis, bronchitis and dehydration, seems to have resolved. The patient has been up and about still weak PLAN: 1. Discharge home on Keflex and steroids 2. Hypokalemia resolved 3. Blood pressure under control. The patient is going to be on numerous blood pressure medications. 4. The patient will be seen in the office in 7-10 days. Plan and coordination of the patient's care discussed in the presence of Radiator Specialist and nurse. SCRIBED BY: CAROLYN SCANLON [place] scribed while in presence of service performed by Dr. MOUNA MUELLER on 08/29/19 ([id number])
[2019-08-29] MEDS ORDERED: ROCEPHIN 1 GM/50 ML D5W 1 GM/50 ML BAG IV SCH (09:00)
[2019-08-29] MEDS: SOLU-CORTEF 250 MG IVP SCH (09:15)
[2019-08-29] MEDS: NEXIUM IV IVP SCH (09:16)
--- NOTE | 2019-08-29 14:04 | CM.DICTOOL ---
ADMISSION: 08/25/19 13:36 DISCHARGE: AUGUST 29, 2019 DATE OF SERVICE: 08/29/19 FINAL DIAGNOSIS : INFUENZA A GASTROENTERITIS, SEEMS TO BE RESOLVED BRONCHITIS DEHYDRATION, SEEMS TO BE RESOLVED HX: HYPERTENSION : COZAAR, COREG AND NORVASC ADDED 07/2019 DEPRESSION REFLUX DISEASE HEPATIC STEATOSIS - CT 08/25/2019 DIVERTICULOSIS - CT 08/25/2019 LEFT NEPHROLITHIASIS - CT 08/25/2019 BILATERAL ADRENAL ADENOMAS. 3.7 CM RT, 2.1 CM LT - CT 08/25/2019 SMALL HIATAL HERNIA - CT 08/25/2019 [address]CLER[address]IS - CT 08/25/2019 UPPER ABDOMINAL PAIN, MORE RIGHT UPPER QUADRANT, ETIOLOGY UNDETERMINED CHRONIC CHOLECYSTITIS POSSIBLE-LOW EJECTION FRACTION 8%. ELEVATED BMI 31.8 DEPRESSION WITH ANXIETY LAST VITALS Temp Pulse Resp BP Pulse Ox 97.7 F 83 18 136/88 95 08/29/19 05:17 08/29/19 05:17 08/29/19 05:17 08/29/19 05:17 08/29/19 05:17 TAKE THESE MEDICATIONS AT HOME Amlodipine Besylate (Norvasc) 5 mg PO BID [facility] ----- (NEW) Last Admin: 08/29/19 08:37 Dose: 5 mg Documented by: Carvedilol (Coreg) 12.5 mg PO BID [facility]----- (NEW) Last Admin: 08/29/19 08:38 Dose: 12.5 mg Documented by: Citalopram Hydrobromide (Celexa) 40 mg PO BEDTIME [facility] Last Admin: 08/28/19 21:04 Dose: 40 mg Documented by: Clonazepam (Klonopin) 1 mg PO BID [facility] Last Admin: 08/29/19 08:39 Dose: 1 mg Documented by: Losartan Potassium (Cozaar) 100 mg PO DAILY [facility]------(NEW) Last Admin: 08/29/19 08:38 Dose: 100 mg Documented by: Oseltamivir Phosphate (Tamiflu) 75 mg PO Q12HR [facility] FOR 13 MORE DOSES ---- ( NEW) Stop: 08/30/19 09:01 Last Admin: 08/29/19 08:38 Dose: 75 mg Documented by: Potassium Chloride (K-Dur) 20 meq PO BID X 10 DAYS --------( NEW) Last Admin: 08/29/19 08:43 Dose: 20 meq Documented by: KEFLEX 500 MG PO T.I.D. X 5 DAYS ( NEW) PREDNISONE 10 MG PO DAILY X 5 DAYS (NEW) ALLERGIES iodine Adverse Reaction (Verified 08/25/19 09:34) methylparaben Adverse Reaction (Verified 08/25/19 09:34) povidone-iodine [From Betadine] Adverse Reaction (Verified 08/25/19 09:34) DISCONTINUED MEDICATIONS: NONE NEW PRESCRIPTIONS: Amlodipine Besylate (Norvasc) 5 mg PO BID Carvedilol (Coreg) 12.5 mg PO BID [facility] Losartan Potassium (Cozaar) 100 mg PO DAILY Oseltamivir Phosphate (Tamiflu) 75 mg PO Q12HR FOR 13 MORE DOSES Potassium Chloride (K-Dur) 20 meq PO BID X 10 DAYS KEFLEX 500 MG PO T.I.D. X 5 DAYS PREDNISONE 10 MG PO DAILY X 5 DAYS SMOKING: SMOKING CESSATION DISEASE SPECIFIC EDUCATION: SMOKING CESSATION INFLUENZA HTN DEHYDRATION LAB REVIEW: 08/29/19 05:27 08/29/19 05:27 08/29/19 05:27: Sodium 138.0, Potassium 3.51, Chloride 99.6, Carbon Dioxide 28.0, Anion Gap 13.91, BUN 12.9, Creatinine 0.50 L, Estimated GFR (MDRD) 170.00, BUN/Creatinine Ratio 25.80, Glucose 104.0, Calcium 8.58, Total Bilirubin 0.32, AST 24.7, ALT 22.8, Alkaline Phosphatase 80.1, Total Protein 6.31, Albumin 3.79, Globulin 2.52, Albumin/Globulin Ratio 1.50 08/29/19 05:27: WBC 4.16 L, RBC 5.07, Hgb 16.4, Hct 46.4, MCV 91.5, MCH 32.3 H, MCHC 35.3, RDW Coeff of Dee 13.6, Plt Count 162, Immature Gran % (Auto) 0.2, Neut % (Auto) 56.7, Lymph % (Auto) 31.3, [place] % (Auto) 11.8 H, Eos % (Auto) 0.0, Baso % (Auto) 0.0, Immature Gran # (Auto) 0.0, Neut # (Auto) 2.4, Lymph # (Auto) 1.3, [place] # (Auto) 0.5, Eos # (Auto) 0.0, Baso # (Auto) 0.0 PLAN: DISCHARGE HOME TODAY INDEPENDENTLY ACTIVITE: UP IN HOME THROUGHOUT THE DAY. FREQUENT REST PERIODS, NO STRENUOUS ACTIVITY STAY IN DOORS AT HOME UNTIL FOLLOW UP APPOINTMENT DIET : HEART HEALTHY FOLLOW UP WITH DR. MUELLER/ DAIANA GERMAN APRN IN THE OFFICE ON Thursday @ 130 PM CODE STATUS: FULL CODE MR. [place] REMAINS ALERT AND ORIENTED X 4. PLEASANT BUT, REMAINS WEAK. IS UP INDEPENDENTLY, BUT KNOWS TO " TAKE IT SLOW" WHEN UP. BREATHING BETTER. NO REPORTS OF SOA WHEN UP. NON-PRODUCTIVE OCCASSIONAL COUGH. NUTRITIONAL AND FLUID INTAKE IS WNL NOW. CONTINENT OF BOWEL AND BLADDER. LAST BM 08/27/2019. MD DAIANA PUENTE APRN
[2019-08-29 14:08] VITALS: BP 128/84; TEMP 97.6
--- NOTE | 2019-08-30 09:05 | PN ---
DATE OF SERVICE: 08/27/2019 SUBJECTIVE: 59 year old white male hospitalized with influenza A. The patient had severe dehydration with acute bronchitis, severe gastroenteritis. The patient had not eaten for three days but now his appetite is opening up and feeling better. He says that he has never felt bad in his life. REVIEW OF SYSTEMS: CONSTITUTIONAL: No night sweats. No fatigue, malaise, lethargy. No fever or chills. Still weakness. HEENT: Eyes: No visual changes. No eye pain. No eye discharge. ENT: No runny nose. No epistaxis. No sinus pain. No sore throat. No odynophagia. No congestion. RESPIRATORY: Mild cough with congestion. No hemoptysis. No shortness of breath. CARDIOVASCULAR: No angina symptoms. No CHF symptoms. Chest pain. No palpitations. No PND. No orthopnea. GASTROINTESTINAL: No abdominal pain. No nausea or vomiting. No diarrhea or constipation. No hematemesis. No hematochezia. Appetite improving. GENITOURINARY: No urgency. No frequency. No dysuria. No hematuria. No obstructive symptoms. No discharge. No pain. No significant abnormal bleeding. MUSCULOSKELETAL: No musculoskeletal pain; no joint swelling. NEUROLOGICAL: No headache. No neck pain. No syncope. No seizures. No dizziness. PSYCHIATRIC: Not anxious. No depression. No suicidal thoughts. No homicidal thoughts. SKIN: No rash. No lesions. No wounds. ENDOCRINE: No unexplained weight loss. No weight gain. HEMATOLOGIC/LYMPHATIC: No anemia. No purpura. No petechiae. No prolonged or excessive bleeding. No palpable lymph nodes. PHYSICAL EXAMINATION: VITAL SIGNS: Temperature 98.2, pulse 66, respiratory rate 20, blood pressure 156/90 and pulse ox 94%. HEENT: Head normocephalic, atraumatic. Eyes: Extraocular muscles are intact. Pupils are equal, round and reactive to light and accommodation. Ears: No lesions. Nose appeared normal. Throat: No exudate or erythema. NECK: Supple. No JVD, no carotid bruit. No lymphadenopathy or thyromegaly. LUNGS: Decreased breath sounds with mild wheeze. Clear to auscultation. Percussion note normal. Chest symmetrical. HEART: S1, S2, no S3. No murmurs. No cyanosis or clubbing. No ascites. Pulses: Dorsalis pedis and posterior tibial pulses +1 to +2 bilaterally. ABDOMEN: Soft. Nontender. Bowel sounds active. No CVA tenderness. No mass felt. EXTREMITIES: No edema. Full range of motion of all extremities, equal. NEUROLOGIC: No focal deficit. Cranial nerves II through XII are grossly intact. No headache, no double vision or headache. SKIN: Not dry. Intact. Turgor - A lot better. LYMPHATIC: No palpable lymph nodes/no lymphedema. MUSCULOSKELETAL: Normal joints with no swelling. Muscle tone is normal. LABS: Hgb 15, hct 43, WBC 6,300 normal differential, creatinine 0.5, BUN 9, potassium 3.2. ASSESSMENT: 1. Influenza A with acute bronchitis 2. Gastroenteritis, resolved 3. Dehydration, resolved 4. Hypokalemia is a new problem we will give K-tab 20meq TID daily 5. Hypertension is another problems with Amlodipine to be added 5mg twice a day PLAN: 1. Continue Vasotec IV Q 6 hourly TIME SPENT: More than 30 minutes. Plan and coordination of the patient's care discussed in the presence of nurse. MTDD
--- NOTE | 2019-08-31 09:16 | PN ---
DATE OF SERVICE: 08/28/2019 SUBJECTIVE: 59 year old white male hospitalized with Influenza A with dehydration. The patient had severe dehydration with gastroenteritis and acute bronchitis. The patient is up and about feeling a lot better. REVIEW OF SYSTEMS: CONSTITUTIONAL: No night sweats. Fatigue and weakness. No fever or chills. HEENT: Eyes: No visual changes. No eye pain. No eye discharge. ENT: No runny nose. No epistaxis. No sinus pain. No sore throat. No odynophagia. No congestion. RESPIRATORY: Mild cough but patient says nothing like what it was before, no congestion. No hemoptysis. No shortness of breath. CARDIOVASCULAR: No angina symptoms. No CHF symptoms. No atypical chest pain for CAD. No palpitations. No PND. No orthopnea. GASTROINTESTINAL: No abdominal pain. No nausea or vomiting. No diarrhea or constipation. No hematemesis. No hematochezia. Appetite improving. GENITOURINARY: No urgency. No frequency. No dysuria. No hematuria. No obstructive symptoms. No discharge. No pain. No significant abnormal bleeding. MUSCULOSKELETAL: No musculoskeletal pain; no joint swelling. NEUROLOGICAL: No headache. No neck pain. No syncope. No seizures. No dizziness. PSYCHIATRIC: Not anxious. No depression. No suicidal thoughts. No homicidal thoughts. SKIN: No rash. No lesions. No wounds. ENDOCRINE: No unexplained weight loss. No weight gain. HEMATOLOGIC/LYMPHATIC: No anemia. No purpura. No petechiae. No prolonged or excessive bleeding. No palpable lymph nodes. PHYSICAL EXAMINATION: VITAL SIGNS: Temperature 97.8, pulse 96, respiratory rate 20, blood pressure 140/100, pulse ox 95%. HEENT: Head normocephalic, atraumatic. Eyes: Extraocular muscles are intact. Pupils are equal, round and reactive to light and accommodation. Ears: No lesions. Nose appeared normal. Throat: No exudate or erythema. NECK: Supple. No JVD, no carotid bruit. No lymphadenopathy or thyromegaly. LUNGS: Decreased breath sounds. Clear to auscultation. Percussion note normal. Chest symmetrical. HEART: S1, S2, no S3. No murmurs. No cyanosis or clubbing. No ascites. Pulses: Dorsalis pedis and posterior tibial pulses +1 to +2 bilaterally. ABDOMEN: Soft. Nontender. Bowel sounds active. No CVA tenderness. No mass felt. EXTREMITIES: No edema. Full range of motion of all extremities, equal. NEUROLOGIC: No focal deficit. Cranial nerves II through XII are grossly intact. No headache, no double vision or headache. SKIN: Not dry. Intact. Turgor - normal. LYMPHATIC: No palpable lymph nodes/no lymphedema. MUSCULOSKELETAL: Normal joints with no swelling. Muscle tone is normal. LABS: Hgb 16.1, hct 46, WBC 5,400 normal differential, creatinine 0.4, BUN 8, potassium 3.1. ASSESSMENT: 1. Influenza A with acute gastroenteritis and bronchitis seems to be resolving 2. Dehydration resolved 3. Hypokalemia, will increase K-Tab 20meq 4 times a day 4. Hypertension, will add Coreg 12.5mg PO twice a day along with other medications. CONDITION: Stable. TIME SPENT: More than 30 minutes. Plan and coordination of the patient's care discussed in the presence of nurse. [place]
--- NOTE | 2019-08-31 11:42 | DS ---
DATE OF SERVICE: 08/29/2019 FINAL DIAGNOSIS: 1. INFLUENZA A 2. GASTROENTERITIS, SEEMS TO BE RESOLVED 3. BRONCHITIS 4. DEHYDRATION, SEEMS TO BE RESOLVED HISTORY OF: HYPERTENSION : COZAAR, COREG AND NORVASC ADDED 07/2019 DEPRESSION REFLUX DISEASE HEPATIC STEATOSIS - CT 08/25/2019 DIVERTICULOSIS - CT 08/25/2019 LEFT NEPHROLITHIASIS - CT 08/25/2019 BILATERAL ADRENAL ADENOMAS. 3.7 CM RT, 2.1 CM LT - CT 08/25/2019 SMALL HIATAL HERNIA - CT 08/25/2019 ATHEROSCLEROSIS - CT 08/25/2019 UPPER ABDOMINAL PAIN, MORE RIGHT UPPER QUADRANT, ETIOLOGY UNDETERMINED CHRONIC CHOLECYSTITIS POSSIBLE-LOW EJECTION FRACTION 8%. ELEVATED BMI 31.8 DEPRESSION WITH ANXIETY LAST VITALS: Temp Pulse Resp BP Pulse Ox 97.7 F 83 18 136/88 95 08/29/19 05:17 08/29/19 05:17 08/29/19 05:17 08/29/19 05:17 08/29/19 05:17 DISCHARGE INSTRUCTIONS: DISCHARGE HOME TODAY INDEPENDENTLY. FOLLOW UP WITH DR. MUELLER/ DAIANA GERMAN APRN IN THE OFFICE ON Thursday @ 130 PM. CODE STATUS: FULL CODE. TAKE THESE MEDICATIONS AT HOME: Amlodipine Besylate (Norvasc) 5 mg PO BID [facility] ----- (NEW) Last Admin: 08/29/19 08:37 Dose: 5 mg Documented by: Carvedilol (Coreg) 12.5 mg PO BID [facility]----- (NEW) Last Admin: 08/29/19 08:38 Dose: 12.5 mg Documented by: Citalopram Hydrobromide (Celexa) 40 mg PO BEDTIME [facility] Last Admin: 08/28/19 21:04 Dose: 40 mg Documented by: Clonazepam (Klonopin) 1 mg PO BID [facility] Last Admin: 08/29/19 08:39 Dose: 1 mg Documented by: Losartan Potassium (Cozaar) 100 mg PO DAILY [facility]------(NEW) Last Admin: 08/29/19 08:38 Dose: 100 mg Documented by: Oseltamivir Phosphate (Tamiflu) 75 mg PO Q12HR [facility] FOR 13 MORE DOSES ---- ( NEW) Stop: 08/30/19 09:01 Last Admin: 03/02/20 08:38 Dose: 75 mg Documented by: Potassium Chloride (K-Dur) 20 meq PO BID X 10 DAYS --------( NEW) Last Admin: 08/29/19 08:43 Dose: 20 meq Documented by: KEFLEX 500 MG PO T.I.D. X 5 DAYS ( NEW) PREDNISONE 10 MG PO DAILY X 5 DAYS (NEW) ALLERGIES: iodine Adverse Reaction (Verified 08/25/19 09:34) methylparaben Adverse Reaction (Verified 08/25/19 09:34) povidone-iodine [From Betadine] Adverse Reaction (Verified 08/25/19 09:34) DISCONTINUED MEDICATIONS: NONE NEW PRESCRIPTIONS: Amlodipine Besylate (Norvasc) 5 mg PO BID Carvedilol (Coreg) 12.5 mg PO BID [facility] Losartan Potassium (Cozaar) 100 mg PO DAILY Oseltamivir Phosphate (Tamiflu) 75 mg PO Q12HR FOR 13 MORE DOSES Potassium Chloride (K-Dur) 20 meq PO BID X 10 DAYS KEFLEX 500 MG PO T.I.D. X 5 DAYS PREDNISONE 10 MG PO DAILY X 5 DAYS SMOKING: SMOKING CESSATION DISEASE SPECIFIC EDUCATION: SMOKING CESSATION INFLUENZA HYPERTENSION DEHYDRATION LAB REVIEW: 08/29/19 05:27 08/29/19 05:27 08/29/19 05:27: Sodium 138.0, Potassium 3.51, Chloride 99.6, Carbon Dioxide 28.0, Anion Gap 13.91, BUN 12.9, Creatinine 0.50 L, Estimated GFR (MDRD) 170.00, BUN/Creatinine Ratio 25.80, Glucose 104.0, Calcium 8.58, Total Bilirubin 0.32, AST 24.7, ALT 22.8, Alkaline Phosphatase 80.1, Total Protein 6.31, Albumin 3.79, Globulin 2.52, Albumin/Globulin Ratio 1.50 08/29/19 05:27: WBC 4.16 L, RBC 5.07, Hgb 16.4, Hct 46.4, MCV 91.5, MCH 32.3 H, MCHC 35.3, RDW Coeff of Dee 13.6, Plt Count 162, Immature Gran % (Auto) 0.2, Neut % (Auto) 56.7, Lymph % (Auto) 31.3, Sutton % (Auto) 11.8 H, Eos % (Auto) 0.0, Baso % (Auto) 0.0, Immature Gran # (Auto) 0.0, Neut # (Auto) 2.4, Lymph # (Auto) 1.3, Sutton # (Auto) 0.5, Eos # (Auto) 0.0, Baso # (Auto) 0.0 ACTIVITY: UP IN HOME THROUGHOUT THE DAY. FREQUENT REST PERIODS, NO STRENUOUS ACTIVITY STAY IN DOORS AT HOME UNTIL FOLLOW UP MD APPOINTMENT DIET : [facility]SE: 59 year old white male who was hospitalized through the emergency room with severe dehydration plus ketone in the urine. The patient was unable to even open eyes. He was weak and tired and had not eaten for three days. He had Influenza A with acute gastroenteritis and acute bronchitis. The patient was treated with IV antibiotics Rocephin and steroids were given IV initially and later on switched to PO at time of discharge. Tamiflu was used. The patient is going to be discharged on the rest of the Tamiflu for a total of 10 days. Antibiotics for nearly 10 days. Keflex and steroids along with the side effects of steroids including avascular necrosis of bones and cataracts were discussed with the patient. The patient's condition at the time of discharge is stable. He was up and about and he was advised to rest until seen in the office. CONDITION: STABLE TIME SPENT: More than 60 minutes. MTDD
--- NOTE | 2019-08-31 11:42 | PN ---
08/25/2019: Level 5 08/26/2019: Intermediate 08/27/2019: Intermediate 08/28/2019: Intermediate 08/29/2019: D as in discharge MTDD
== END 2019-08-29 15:34 | disposition home or self-care (01) | DRG 866 ==
LOC: ED 09:16 → MEDSURG B 09:16 → OBSVTOIN 13:36 → MEDSURG B 14:27
PROVIDERS: ADMIT Internal Medicine; ATTEND Internal Medicine
DX: N20.9 Urinary calculus, unspecified; R11.10 Vomiting, unspecified; F17.210 Nicotine dependence, cigarettes, uncomplicated; K76.0 Fatty (change of) liver, not elsewhere classified; J11.2 Influenza due to unidentified influenza virus with gastrointestinal manifestations; E87.6 Hypokalemia; F32.9 Major depressive disorder, single episode, unspecified; K44.9 Diaphragmatic hernia without obstruction or gangrene; R53.83 Other fatigue; J20.9 Acute bronchitis, unspecified; K57.30 Diverticulosis of large intestine without perforation or abscess without bleeding; R82.4 Acetonuria; I70.91 Generalized atherosclerosis; F41.9 Anxiety disorder, unspecified; R53.1 Weakness; E27.9 Disorder of adrenal gland, unspecified; I10 Essential (primary) hypertension; E86.0 Dehydration